=== PATIENT | female | born 1940 | race Caucasian/White ===

== ENCOUNTER 2017-03-07 15:12 | Inpatient (IN) ==
--- NOTE | 2017-03-07 18:00 | Internal Med History&Physical ---
Date of Encounter: 03/07/17 Time of Encounter: 19:53 Assessment and Plan (1) S/p nephrectomy Current visit: Yes Status: Acute Had a left laparoscopic hand assisted nephrectomy on 02/20 2017 for a left renal mass. She had a splenic injury that resulted in a bleed at the time of surgery that was packed. and had hemostasis. she had several repeat CT scans that showed stability of the splenic hematoma. She did undergo transfusion of 4 units packed red blood cells done at [facility]. Surgery was consult to for this splenic hematoma conservative management was done. She is deconditioned after all thatand is here for rehabilitation. (2) Physical deconditioning Current visit: Yes Status: Acute She is deconditioned after her left nephrectomy we will consult PT OT RT. Discharge will be pending rehabilitation goals when she is safe in her home (3) Acquired hypothyroidism Current visit: Yes Status: Acute We will continue her home medication (4) CKD (chronic kidney disease), stage III Current visit: Yes Status: Chronic Follow her creatinine. (5) HTN (hypertension) Current visit: Yes Status: Chronic Blood pressures have been on the low side since she was [facility] we will continue to follow that she is on a beta juan carlos she is on a Cardizem she is on losartan and Lasix. may Have to adjust medications if blood pressures are low. Qualifiers: Hypertension type: essential hypertension Qualified Code(s): I10 - Essential (primary) hypertension (6) DVT prophylaxis Current visit: Yes Status: Inactive She was on xarelto prior to admission for chronic A. fib. That was held after the splenic hematoma we will keep her on the SCDs for DVT prophylaxis (7) Renal mass Current visit: No Status: Acute She underwent a laparoscopic left hand-assisted nephrectomy on 02/20 2017 (8) Spleen hematoma Current visit: Yes Status: Acute She had 4 units of packed red blood cells after this conservative management has been done she had [address] scans a documented stability of this. Anticoagulation is being held due to this. Qualifiers: Encounter type: subsequent encounter Qualified Code(s): S36.029D - Unspecified contusion of spleen, subsequent encounter (9) Acute congestive heart failure with left ventricular diastolic dysfunction Current visit: Yes Status: Acute He received 4 units of packed red blood cells done at [facility] for her anemia after her splenic hematoma postop. She did receive a lot IV fluids she had IV Lasix and diuresis. She had pleural effusions she has since been doing better she is on oral Lasix she is on losartan she is on a beta juan carlos. We will continue to monitor for swelling and sign of CHF. (10) Afib Current visit: Yes Status: Chronic Is on metoprolol and added diltiazem down at [facility]. She is not currently anticoagulated other than an aspirin due to the fact she had a splenic hematoma. She has a history of retroperitoneal bleed and on Coumadin in the past. We will hold this for now stroke risks discussed Qualifiers: Atrial fibrillation type: chronic Qualified Code(s): I48.2 - Chronic atrial fibrillation (11) Acute blood loss anemia Current visit: Yes Status: Acute (12) Hyponatremia Current visit: No Status: Chronic Is likely due to fluid overload and CHF her sodium has gotten closer to normal with diuresis we will continue to follow (13) Sacral decubitus ulcer, stage II Current visit: Yes Status: Acute will consult care on friday. position changes Internal Medicine - H&P: HPI Chief complaint: here for Rehabilitation Admitted From: Hospital to Hospital Transfer Plans for Post Hospital Care: Home History of present illness: Ms. Jeffries is a 76 year old female Who had a left hand-assisted nephrectomy on 2016 for renal mass. She had a splenic injury at the time that developed a splenic hematoma. She had a postop anemia that required a transfusion of 4 units of packed red blood cells. She had CHF due to fluid overload with all the IV fluid she received for resuscitation after the hematoma. She has been diuresed with IV Lasix. She had A. fib with a rapid ventricular response to which diltiazem was added to her beta juan carlos. She is not anticoagulated due to the splenic hematoma. She also had a history of a retroperitoneal bleed in the past when she was on Coumadin. Due to the risk of bleeding we will hold her anticoagulation. She has become deconditioned and she is here for rehabilitation PT OT RT. The squad ride here was not comfortable. her neck and incision are bothering her. she had a "suprise"stool with a suppository at [facility] and is requesting no more of that since she did not make it in time. She was getting duonebs at [facility] and her son requests those again in case she wheezes. her appetite has been low, but she states she does this after she has surgery. her energy is low too. Past Med Surg Social Fam HX - Past Medical History Medical history: arthritis, atrial fibrillation, cancer (breast, basal cell of skin), hyperlipidemia, hypertension, malignancy, renal disease (CKD and a left renal mass, s/p nephrectomy on 02/20/17), thyroid disease (hypo), other ( secondary hyperparathyroid, anemia, vitamin d def, obesity) Psychiatric history: no psych history - Past Surgical History Surgical History: breast surgery (2008 masectomy), cancer surgery, cataract ( 2002, 2010), hip replacement (left 06/24/16), orthopedic, other (1988 rotator cuff repair, 1979 carpal tunnel release x3, , trigger finger bilateral 4th digits and left thumb), sinus surgery (2005), other (1983 BPS, tonsils child, skin bx 2012, cardiac ablation 2013, 2009 colonoscopy, d&C 09/2015, 02/20/2017 left hand assisted laparoscopic nephrectomy for renal mass) - Social History Smoking Status: Never smoker Smokeless Tobacco Status: No Alcohol use: none Drug use: none Current living situation: Home - Independent - Family History Mother Living Status: Age at : 71 Cause of : aneurysm Hx Family Cardiac Disorders: Yes (htn, chf ) Hx Family Neurologic Disorders: Yes (aneurysm) Father Living Status: Hx Family Cardiac Disorders: Yes (cad,mi) Hx Family Cancer: Yes (lymphoma) Son Cause of : Asif age 14 MVA Internal Medicine - H&P: Meds Atorvastatin [Lipitor] 40 mg PO HS tablet 06/12/15 [Rx] Losartan [Cozaar] 100 mg PO DAILY #30 tablet 06/12/15 [Rx] Aspirin Enteric Coated [Aspirin EC] 81 mg PO DAILY 07/18/15 [History] Furosemide [Lasix] 40 mg PO HS 09/05/15 [History] Potassium Chloride [Klor-Con Sprinkle] 10 meq PO BID 09/05/15 [History] Calcium Citrate/Vitamin D3 [Calcium Citrate-Vit D3 Tablet] 1 each PO DAILY 03/10 [History] Cholecalciferol (Vitamin D3) [Vitamin D3] 2,000 unit PO DAILY 03/10/16 [History] Clindamycin HCl [Cleocin HCl] 300 mg PO DAILY 03/10/16 [History] Glucosamine Sulfate Dipot Chlr [Glucosamine] 500 mg PO DAILY 03/10/16 [History] Vit C/Vit E/Lutein/Min/[place]-3 [Ocuvite Softgel] 1 cap PO DAILY 03/10/16 [ History] Ferrous Sulfate 325 mg PO BIDWM #60 tablet 07/04/16 [Rx] Rivaroxaban [Xarelto] 15 mg PO 1700 #30 tablet 07/05/16 [Rx] Metoprolol [Lopressor] 25 mg PO BID 02/28/17 [History] Vit C/Vit E/Lutein/Min/[place]-3 [Ocuvite Softgel] 1 each PO DAILY 02/28/17 [ History] Diltiazem CD (24hr) [Cardizem CD] 120 mg PO DAILY #30 cap.er.24h 03/07/17 [Rx] OxyCODONE Immed Rel [Roxicodone 5 MG] 10 mg PO Q6HR PRN #25 tablet 03/07/17 [Rx] Sennosides/Docusate Sodium [Senna Plus] 2 each PO BID #30 tablet 03/07/17 [Rx] Allergies No Known Allergies Allergy (Verified 02/28/17 08:34) All Systems PM: A 10-system review of systems was performed and is negative for pertinent findings except as documented above in the HPI. - Constitutional Constitutional: anorexia (decreased appetite), fatigue, weakness (generalized), no chills, no fever(s), no night sweats - Respiratory Respiratory: wheezing (did have some at [facility] and had duonebs for this), no cough, no dyspnea - Gastrointestinal Gastrointestinal: abdominal pain (incision pain), constipation (had a suppository), heartburn (did have post op none now), no diarrhea, no hematochezia, no loose stools, no melena, no nausea, no vomiting (since after surgery) - Genitourinary Genitourinary: no dysuria, no hematuria, no urinary urgency - Musculoskeletal Musculoskeletal ROS IM: neck pain (since the squad ride) - Integumentary Integumentary IM: skin ulcer (buttocks), no pruritus, no rash - Neurological Neurological ROS: weakness (generalized not focal), no numbness, no paresthesias - Endocrine Endocrine IM: fatigue - Constitutional Vitals: Temp Pulse Resp BP Pulse Ox 99.4 F 98 18 124/92 92 03/07/17 15:21 03/07/17 15:21 03/07/17 15:21 03/07/17 15:21 03/07/17 15:21 General appearance: Present: A&O X 3, no acute distress, obese, answers questions appropriately - Head Head exam: Present: atraumatic, normocephalic - Neck Neck exam general surgery: Present: full ROM (hurts to turn to the left), tenderness (paraspinals soreness), supple, trachea midline - Respiratory Respiratory exam: Present: CTAB - Cardiovascular Cardiovascular exam: Present: irregular rhythm, systolic murmur - GI/Abdominal GI/Abdominal exam: Present: distended, normal bowel sounds, tenderness (over incisions). Absent: guarding, rebound, no peritoneal signs - Extremities Exam Extremities exam: Present: normal capillary refill, warm. Absent: cyanotic, pedal edema, tenderness - Incison Incision: Present: clean and dry, intact (of left upper abd and port incisions) - Skin Skin exam: Present: abrasion (stage 2 sacral x 2left and right), dry, warm. Absent: rash
[2017-03-07] MEDS ORDERED: D5% in Water 1,000 ML IVC PRN (20:05)
[2017-03-07] MEDS ORDERED: Dextrose Gel 15 GM PO PRN ×2 (20:05)
[2017-03-07] MEDS ORDERED: *HR* Dextrose 50 % in Water (Syg) 50 ML SYRINGE IVP PRN (20:05)
[2017-03-07] MEDS ORDERED: Ipratropium/Albuterol Neb 3 ML IH PRN (20:06)
[2017-03-07] MEDS: Sennosides/Docusate Sodium TABLET PO SCH (23:04)
[2017-03-08] MEDS: Insulin LISPRO 300 UNITS/3 ML VIAL SQ SCH ×5 (00:07→22:33)
[2017-03-08 02:51] LABS: Bilirubin,Urine Negative (Negative); Blood,Urine Trace-lysed (Negative); Clarity,Urine Clear (Clear); Color,Urine Yellow (Yellow); Glucose,Urine (UA) Normal (Normal); Ketones,Urine Negative (Negative); Leukocyte Esterase,Urine Small (Negative); Nitrite,Urine Negative (Negative); PH,Urine 5.5 pH Units (5.0-8.0); Protein,Urine 100 mg/dL (Neg-Trace); Specific Gravity,Urine 1.015 (1.010-1.025); Urobilinogen,Urine Normal (Normal)
[2017-03-08 04:21] LABS: Bacteria,Urine Moderate per hpf (None-Few); Squamous Epithelial Cell,Urine Few per lpf (None-Few)
[2017-03-08 05:05] LABS: Basophils % 0.2 %; Eosinophils # 0.2 K/mcL (0.0-0.6); Eosinophils % 1.4 %; Hematocrit 25.9 % (35.3-44.9); Hemoglobin 8.4 g/dL (11.5-15.4); Immature Granulocytes % 1.7 % (0-4); Lymphocytes # 1.4 K/mcL (0.6-4.6); Lymphocytes % 11.3 %; Mean Corpuscular HGB Conc 32.4 g/dL (31.6-35.5); Mean Corpuscular Volume 95.6 fL (83.0-100.0); Mean Platelet Volume 8.6 fL (9.4-12.4); Monocytes # 1.5 K/mcL (0.0-1.3); Monocytes % 12.3 %; Neutrophils # 9.1 K/mcL (1.6-8.9); Platelet Count 256 K/mcL (140-400); Red Blood Count 2.71 M/mcL (3.82-4.97); Red Cell Distribution Width 15.9 % (11.5-14.5); Segmented Neutrophils % 73.1 %
[2017-03-08 05:19] LABS: Calcium 8.3 mg/dL (8.6-10.8); Potassium 3.9 mEq/L (3.5-4.5)
[2017-03-08] MEDS: Diltiazem CD (24hr) 120 MG CAPSULE PO SCH (08:36)
[2017-03-08] MEDS: *HR* OxyCODONE Immed Rel 5 MG TABLET PO PRN ×2 (08:36→16:46)
[2017-03-08] MEDS: Cholecalciferol (D-3) 1,000 UNIT TABLET PO SCH (08:36)
[2017-03-08] MEDS: Sennosides/Docusate Sodium TABLET PO SCH ×2 (08:36→20:40)
[2017-03-08] MEDS: LUTEIN PO SCH (08:37)
[2017-03-08] MEDS: GLUCOSAMINE SULFATE DIPOT CHLR 500 MG PO SCH (08:37)
[2017-03-08] MEDS: Furosemide 40 MG TABLET PO SCH (08:37)
[2017-03-08] MEDS: Aspirin Enteric Coated 81 MG Tablet PO SCH (08:37)
[2017-03-08] MEDS: [UNRECOGNIZED DRUG - OTHER] PO SCH (08:37)
[2017-03-08] MEDS: VIT C PO SCH (08:37)
[2017-03-08] MEDS: VIT E PO SCH (08:37)
[2017-03-09] MEDS: *HR* OxyCODONE Immed Rel 5 MG TABLET PO PRN ×3 (05:58→21:46)
[2017-03-09] MEDS: Insulin LISPRO 300 UNITS/3 ML VIAL SQ SCH ×4 (08:25→21:12)
[2017-03-09] MEDS: Cholecalciferol (D-3) 1,000 UNIT TABLET PO SCH (08:57)
[2017-03-09] MEDS: Aspirin Enteric Coated 81 MG Tablet PO SCH (08:57)
[2017-03-09] MEDS: Diltiazem CD (24hr) 120 MG CAPSULE PO SCH (08:57)
[2017-03-09] MEDS: Sennosides/Docusate Sodium TABLET PO SCH ×2 (08:57→21:46)
[2017-03-09] MEDS: VIT C PO SCH (08:58)
[2017-03-09] MEDS: VIT E PO SCH (08:58)
[2017-03-09] MEDS: [UNRECOGNIZED DRUG - OTHER] PO SCH (08:58)
[2017-03-09] MEDS: GLUCOSAMINE SULFATE DIPOT CHLR 500 MG PO SCH (08:58)
[2017-03-09] MEDS: Furosemide 40 MG TABLET PO SCH (08:58)
[2017-03-09] MEDS: LUTEIN PO SCH (08:58)
--- NOTE | 2017-03-09 13:25 | Internal Med Progress Note ---
Date of Encounter: 03/09/17 Time of Encounter: 13:23 - Assessment and plan (1) S/p nephrectomy Current Visit: Yes Status: Acute Assessment and plan: she has deconditioning she is here for rehabilitation will continue PT RT OT. (2) Physical deconditioning Current Visit: Yes Status: Acute Assessment and plan: She is here for PT RT O T (3) Acquired hypothyroidism Current Visit: Yes Status: Acute Assessment and plan: will continue home medication. she was off it at [facility] (4) CKD (chronic kidney disease), stage III Current Visit: Yes Status: Chronic Assessment and plan: has improved will continue to follow, bmp on friday (5) HTN (hypertension) Current Visit: Yes Status: Chronic Assessment and plan: Has been up and down. We will continue to follow may need to adjust her medicines but metoprolol and diltiazem for her heart rate if she goes low may have to hold her losartan. Qualifiers: Hypertension type: essential hypertension Qualified Code(s): I10 - Essential (primary) hypertension (6) DVT prophylaxis Current Visit: Yes Status: Inactive Assessment and plan: cannot do anticoagulation due to the spleenic hematoma. SCD and ROWAN hose and ambulation. (7) Renal mass Current Visit: No Status: Acute Assessment and plan: s/p left nephrectomy. path pending. she was told it was cancer (8) Spleen hematoma Current Visit: Yes Status: Acute Qualifiers: Encounter type: subsequent encounter Qualified Code(s): S36.029D - Unspecified contusion of spleen, subsequent encounter (9) Acute congestive heart failure with left ventricular diastolic dysfunction Current Visit: Yes Status: Acute Assessment and plan: She is on Lasix losartan metoprolol (10) Afib Current Visit: Yes Status: Chronic Assessment and plan: She is not anticoagulated with except a baby aspirin due to the splenic hematoma she also had retroperitoneal bleed in the past on Coumadin. holding anticoagulation for now. discussed this with patient to discuss her increased risk for thromboembolic event due to not being anticoagulated with atrial fibrillation. Her son and her are the risk. Qualifiers: Atrial fibrillation type: chronic Qualified Code(s): I48.2 - Chronic atrial fibrillation (11) Acute blood loss anemia Current Visit: Yes Status: Acute Assessment and plan: Has been stable she is status post 4 units packed red blood cells done at [facility]. We will repeat a hemoglobin tomorrow due to postoperative blood loss and a splenic hematoma (12) Hyponatremia Current Visit: No Status: Chronic Assessment and plan: Has resolved with correcting her fluid balance. (13) Sacral decubitus ulcer, stage II Current Visit: Yes Status: Acute Assessment and plan: Tristan will have wound care see her on Friday. Continue frequent position changes - Subjective Interval history: Her pain is acceptable. She has not had a had a stool. She is passing gas. She has no nausea or vomiting. She is not short of breath she is not wheezing. She does not feel her heart palpitating or racing. She is not dizzy. She has shower yesterday she was up to rehabilitation yesterday. She is wearing her SCDs when she is in bed. - Constitutional Vitals: Temp Pulse Resp BP Pulse Ox 97.0 F L 120 20 128/81 96 03/09/17 11:34 03/09/17 11:34 03/09/17 11:34 03/09/17 11:34 03/09/17 11:34 General appearance: Present: A&O X 3, no acute distress, obese, answers questions appropriately - Head Head exam: Present: atraumatic, normocephalic - Neck Neck exam general surgery: Present: trachea midline. Absent: full ROM (She is having some cervical muscle spasms.), tenderness - Respiratory Respiratory exam: Present: CTAB - Cardiovascular Cardiovascular exam: Present: irregular rhythm, systolic murmur - GI/Abdominal GI/Abdominal exam: Present: distended (But she states no different than her normal), normal bowel sounds, no peritoneal signs. Absent: guarding, rebound, tenderness - Extremities Exam Extremities exam: Present: warm. Absent: pedal edema (ROWAN hose on bilaterally) - Incison Incision: Present: clean and dry, intact (Mild induration with a hematoma at the left lateral incision no change) - Skin Skin exam: Present: dry, warm. Absent: rash Internal Medicine: Result - Labs CBC & Chem 7: 03/08/17 04:45 03/08/17 04:45 - VTE Documentation of Mechanical Device: Venous foot pump, device Consult Discharge Plan - Plan Referrals: Denny Bergeron MD [Primary Care Provider] -
[2017-03-09] MEDS: Lactulose Oral Soln 20 GM/30 ML UDC PO PRN (15:19)
[2017-03-10] MEDS: *HR* OxyCODONE Immed Rel 5 MG TABLET PO PRN ×2 (06:05→19:52)
[2017-03-10 06:09] LABS: Basophils % 0.3 %; Eosinophils # 0.2 K/mcL (0.0-0.6); Eosinophils % 1.9 %; Hematocrit 26.3 % (35.3-44.9); Hemoglobin 8.2 g/dL (11.5-15.4); Immature Granulocytes % 1.8 % (0-4); Lymphocytes # 1.5 K/mcL (0.6-4.6); Lymphocytes % 11.8 %; Mean Corpuscular HGB Conc 31.2 g/dL (31.6-35.5); Mean Corpuscular Hemoglobin 30.6 pg (28.0-33.3); Mean Corpuscular Volume 98.1 fL (83.0-100.0); Mean Platelet Volume 8.6 fL (9.4-12.4); Monocytes # 1.5 K/mcL (0.0-1.3); Monocytes % 11.6 %; Neutrophils # 9.1 K/mcL (1.6-8.9); Platelet Count 291 K/mcL (140-400); Red Blood Count 2.68 M/mcL (3.82-4.97); Red Cell Distribution Width 15.7 % (11.5-14.5); Segmented Neutrophils % 72.6 %
[2017-03-10 06:14] LABS: Calcium 8.5 mg/dL (8.6-10.8); Potassium 4.2 mEq/L (3.5-4.5)
--- NOTE | 2017-03-10 06:44 | Internal Med Progress Note ---
Date of Encounter: 03/10/17 Time of Encounter: 06:44 - Assessment and plan (1) Physical deconditioning Current Visit: Yes Status: Acute Assessment and plan: Patient will be resuming full therapies today, Friday. She has been able to get out of bed with help, ambulate with her walker to and from the dining room. Her pain is under good control. She feels like she is improving. Her biggest complaint is neck stiffness which seems be musculoskeletal. No meningeal signs. Hopefully therapies can work with this as well. (2) CKD (chronic kidney disease), stage III Current Visit: Yes Status: Acute Assessment and plan: Her creatinine is up to 1.99. I encouraged her to increase her fluid intake. She has a history of chronic kidney disease and will monitor for now. (3) HTN (hypertension) Current Visit: Yes Status: Chronic Assessment and plan: Chronic history of hypertension, now her blood pressures are in the 90s systolic. We will hold her Cozaar today. We will continue her beta juan carlos and calcium channel juan carlos for rate control. She is not symptomatic. Qualifiers: Hypertension type: essential hypertension Qualified Code(s): I10 - Essential (primary) hypertension (4) Hypoxemia Current Visit: No Status: Acute Assessment and plan: She is still requiring a small amount of oxygen. Typically at home she uses it at night. We will continue to monitor and wean when appropriate. (5) Constipation Current Visit: No Status: Inactive Assessment and plan: She states her bowels have not moved since she has been in Rehab. She did have incontinence with suppository used at [facility]. Lactulose was started and she is passing gas. We will see what happens today. No particular symptomatically otherwise. Bowel sounds are normal. Qualifiers: Constipation type: unspecified constipation type Qualified Code(s): K59.00 - Constipation, unspecified (6) Afib Current Visit: Yes Status: Chronic Assessment and plan: Chronic history of atrial fibrillation, A. fib with RVR postop now controlled. No angina or CHF noted. Not anticoagulated because of previous retroperitoneal bleed. Recent splenic hematoma and bleed postop. Qualifiers: Atrial fibrillation type: chronic Qualified Code(s): I48.2 - Chronic atrial fibrillation (7) Spleen hematoma Current Visit: No Status: Acute Assessment and plan: Hemoglobin is stable at 8.2. Her abdomen is nontender. Qualifiers: Encounter type: subsequent encounter Qualified Code(s): S36.029D - Unspecified contusion of spleen, subsequent encounter (8) Acute blood loss anemia Current Visit: Yes Status: Acute Assessment and plan: Hemoglobin is 8.2 and stable. We will continue to monitor. (9) Sacral decubitus ulcer, stage II Current Visit: Yes Status: Acute Assessment and plan: I did not evaluate this today. She is being seen by wound clinic today. Allevyn has been placed (10) S/p nephrectomy Current Visit: Yes Status: Acute (11) DVT prophylaxis Current Visit: Yes Status: Inactive Assessment and plan: She is not a candidate for full anticoagulation because of previous retroperitoneal bleed and recent splenic hematoma postop bleed. Compression devices on lower extremities and ambulation and elastic stockings being used. No sign of DVT. No calf tenderness. - Subjective Interval history: Patient states that she slept well last night. She has been up and out of bed already this morning into the bathroom. She denies any respiratory or cardiac symptoms. She is having less pain of her incision and less pain when she coughs or sits up. She does complain of pain across to her feet. No calf pain or tenderness. No dyspnea. She also has "a stiff neck". She states she gets this on occasion in the past. It hurts when she turns to the left or right, more pain on the right neck area when turning to the left side. No fever or chills. - Constitutional Vitals: Temp Pulse Resp BP Pulse Ox 98.3 F 99 16 90/61 97 03/10/17 04:00 03/10/17 04:00 03/10/17 04:00 03/10/17 04:00 03/10/17 04:00 General appearance: Present: A&O X 3, no acute distress, obese, answers questions appropriately - Neck Additional comments: She is appropriate flexion and extension for her age. When looking to the left or right she has pain in the ipsilateral side of her neck. She favors the right side. - Respiratory Respiratory exam: Present: CTAB. Absent: rales, respiratory distress, wheezes - Cardiovascular Cardiovascular exam: Present: irregular rhythm. Absent: systolic murmur Additional comments: Controlled rate in the 70s to 90s. - GI/Abdominal GI/Abdominal exam: Present: normal bowel sounds. Absent: rebound, tenderness, no peritoneal signs Additional comments: Her 3 incisions are healing nicely. No redness or drainage. Not particularly tender. - Extremities Exam Extremities exam: Absent: calf tenderness, joint swelling Additional comments: She is tender at her ankles and across the dorsum of her feet. No particular edema. Negative Homans sign - Incison Incision: Present: clean and dry, intact, approximated Internal Medicine: Result - Labs CBC & Chem 7: 03/10/17 05:35 03/10/17 05:35 Labs: Short CBC 03/10/17 Range/Units 05:35 WBC 12.5 H (4.3-11.1) K/mcL Hgb 8.2 L (11.5-15.4) g/dL Hct 26.3 L (35.3-44.9) % Plt Count 291 (140-400) K/mcL Neutrophils # 9.1 H (1.6-8.9) K/mcL BMP 03/10/17 05:35 Sodium 138 Potassium 4.2 Chloride 102 Carbon Dioxide 24 BUN 47 H D Creatinine 1.99 H Glucose 121 H Calcium 8.5 L Hemoglobin is stable. White blood cell count mildly elevated and stable. Her creatinine has risen a bit, she has a history of chronic kidney disease. - VTE Documentation of Mechanical Device: Venous foot pump, device Consult Discharge Plan - Plan Referrals: Denny Bergeron MD [Primary Care Provider] -
[2017-03-10] MEDS: Aspirin Enteric Coated 81 MG Tablet PO SCH (08:35)
[2017-03-10] MEDS: Diltiazem CD (24hr) 120 MG CAPSULE PO SCH (08:36)
[2017-03-10] MEDS: GLUCOSAMINE SULFATE DIPOT CHLR 500 MG PO SCH (08:36)
[2017-03-10] MEDS: Sennosides/Docusate Sodium TABLET PO SCH ×2 (08:36→19:52)
[2017-03-10] MEDS: Cholecalciferol (D-3) 1,000 UNIT TABLET PO SCH (08:36)
[2017-03-10] MEDS: Furosemide 40 MG TABLET PO SCH (08:36)
[2017-03-10] MEDS: Insulin LISPRO 300 UNITS/3 ML VIAL SQ SCH ×4 (08:37→21:14)
[2017-03-10] MEDS: VIT C PO SCH (08:38)
[2017-03-10] MEDS: [UNRECOGNIZED DRUG - OTHER] PO SCH (08:38)
[2017-03-10] MEDS: LUTEIN PO SCH (08:38)
[2017-03-10] MEDS: VIT E PO SCH (08:38)
[2017-03-11] MEDS: *HR* OxyCODONE Immed Rel 5 MG TABLET PO PRN ×2 (03:41→20:35)
--- NOTE | 2017-03-11 06:33 | Internal Med Progress Note ---
Date of Encounter: 03/12/17 Time of Encounter: 06:25 - Assessment and plan (1) Physical deconditioning Current Visit: Yes Status: Acute Assessment and plan: She continues to advance with her therapies and ADLs. Pain is under adequate control. She is able to go off her oxygen at times. (2) CKD (chronic kidney disease), stage III Current Visit: Yes Status: Acute Assessment and plan: She has chronic kidney disease with acute exacerbation. Overall has been stable or improved. Follow-up lab work ordered. (3) HTN (hypertension) Current Visit: Yes Status: Chronic Assessment and plan: Hypertension has been under better control. She had hypotension, Cozaar was held and pressures are now reasonable. We will continue to monitor. Qualifiers: Hypertension type: essential hypertension Qualified Code(s): I10 - Essential (primary) hypertension (4) Hypoxemia Current Visit: No Status: Acute Assessment and plan: She is able to spend more time during the day off oxygen. She chronically uses it at night. (5) Constipation Current Visit: No Status: Inactive Assessment and plan: She still has not had a good bowel movement since admitted to our facility. We will increase to lactulose to twice a day if needed. Continue to follow. Her abdomen examination is otherwise normal Qualifiers: Constipation type: unspecified constipation type Qualified Code(s): K59.00 - Constipation, unspecified (6) Afib Current Visit: Yes Status: Chronic Assessment and plan: She has a history of chronic atrial fibrillation but not a candidate for anticoagulation because of retroperitoneal hemorrhage in the past. She is rate controlled Qualifiers: Atrial fibrillation type: chronic Qualified Code(s): I48.2 - Chronic atrial fibrillation (7) Spleen hematoma Current Visit: No Status: Acute Assessment and plan: She has had no abdominal pain. Her hemoglobin has been stable. Follow-up ordered. Qualifiers: Encounter type: subsequent encounter Qualified Code(s): S36.029D - Unspecified contusion of spleen, subsequent encounter (8) Acute blood loss anemia Current Visit: Yes Status: Acute Assessment and plan: Follow-up hemoglobin ordered. (9) Sacral decubitus ulcer, stage II Current Visit: Yes Status: Acute Assessment and plan: Has been seen by wound clinic. Allevyn has been placed. We will evaluate tomorrow. (10) S/p nephrectomy Current Visit: Yes Status: Acute (11) DVT prophylaxis Current Visit: Yes Status: Inactive Assessment and plan: Not able to have full anticoagulation because of previous retroperitoneal hemorrhage. She is getting aspirin and compression devices to lower extremities and frequent ambulation. - Subjective Interval history: Patient has no acute symptoms this morning. She walked well in therapy yesterday. She was able to be on room air during the day. Chronically she uses oxygen at night. She denies any cardiac or respiratory symptoms. Her bowels have not moved, she has passed gas. No abdominal pain. Her neck pain is improved. Her ankle and foot pain is improved. She is eating well. She is needing fairly minimal amount of pain medication. I was told that expected discharge date is . - Constitutional Vitals: Temp Pulse Resp BP Pulse Ox 98.5 F 93 16 117/58 97 03/11/17 03:37 03/11/17 03:37 03/11/17 03:37 03/11/17 03:37 03/11/17 03:37 General appearance: Present: A&O X 3, no acute distress, obese, answers questions appropriately - Respiratory Respiratory exam: Present: CTAB - Cardiovascular Cardiovascular exam: Present: irregular rhythm, +S1, +S2. Absent: systolic murmur - GI/Abdominal GI/Abdominal exam: Present: normal bowel sounds, soft, no peritoneal signs. Absent: mass, tenderness - Extremities Exam Extremities exam: Absent: calf tenderness, tenderness - Incison Incision: Present: clean and dry, intact. Absent: erythema Internal Medicine: Result - Labs CBC & Chem 7: 03/12/17 04:50 03/12/17 04:50 - VTE Documentation of Mechanical Device: Graduated compression elastic hosiery Consult Discharge Plan - Plan Referrals: Denny Bergeron MD [Primary Care Provider] -
[2017-03-11] MEDS: Insulin LISPRO 300 UNITS/3 ML VIAL SQ SCH ×4 (07:34→20:40)
[2017-03-11] MEDS: GLUCOSAMINE SULFATE DIPOT CHLR 500 MG PO SCH (08:29)
[2017-03-11] MEDS: Diltiazem CD (24hr) 120 MG CAPSULE PO SCH (08:29)
[2017-03-11] MEDS: Furosemide 40 MG TABLET PO SCH (08:29)
[2017-03-11] MEDS: Sennosides/Docusate Sodium TABLET PO SCH ×2 (08:29→20:34)
[2017-03-11] MEDS: Cholecalciferol (D-3) 1,000 UNIT TABLET PO SCH (08:29)
[2017-03-11] MEDS: Aspirin Enteric Coated 81 MG Tablet PO SCH (08:29)
[2017-03-11] MEDS: VIT E PO SCH (08:30)
[2017-03-11] MEDS: LUTEIN PO SCH (08:30)
[2017-03-11] MEDS: [UNRECOGNIZED DRUG - OTHER] PO SCH (08:30)
[2017-03-11] MEDS: VIT C PO SCH (08:30)
[2017-03-11] MEDS: Lactulose Oral Soln 20 GM/30 ML UDC PO PRN ×3 (08:30→20:34)
[2017-03-12 05:06] LABS: Basophils % 0.3 %; Eosinophils # 0.2 K/mcL (0.0-0.6); Eosinophils % 1.9 %; Hematocrit 27.3 % (35.3-44.9); Hemoglobin 8.6 g/dL (11.5-15.4); Immature Granulocytes % 1.8 % (0-4); Lymphocytes # 1.4 K/mcL (0.6-4.6); Lymphocytes % 11.5 %; Mean Corpuscular HGB Conc 31.5 g/dL (31.6-35.5); Mean Corpuscular Hemoglobin 30.9 pg (28.0-33.3); Mean Corpuscular Volume 98.2 fL (83.0-100.0); Mean Platelet Volume 8.6 fL (9.4-12.4); Monocytes # 1.2 K/mcL (0.0-1.3); Monocytes % 9.8 %; Neutrophils # 9.2 K/mcL (1.6-8.9); Platelet Count 324 K/mcL (140-400); Red Blood Count 2.78 M/mcL (3.82-4.97); Red Cell Distribution Width 15.3 % (11.5-14.5); Segmented Neutrophils % 74.7 %
[2017-03-12 05:10] LABS: Calcium 8.5 mg/dL (8.6-10.8); Potassium 4.1 mEq/L (3.5-4.5)
[2017-03-12] MEDS: *HR* OxyCODONE Immed Rel 5 MG TABLET PO PRN ×2 (05:54→20:50)
[2017-03-12] MEDS: Insulin LISPRO 300 UNITS/3 ML VIAL SQ SCH ×4 (08:53→20:52)
[2017-03-12] MEDS: Lactulose Oral Soln 20 GM/30 ML UDC PO PRN ×2 (09:02→20:49)
[2017-03-12] MEDS: Aspirin Enteric Coated 81 MG Tablet PO SCH (09:03)
[2017-03-12] MEDS: Diltiazem CD (24hr) 120 MG CAPSULE PO SCH (09:03)
[2017-03-12] MEDS: Cholecalciferol (D-3) 1,000 UNIT TABLET PO SCH (09:03)
[2017-03-12] MEDS: Sennosides/Docusate Sodium TABLET PO SCH ×2 (09:03→20:49)
[2017-03-12] MEDS: Furosemide 40 MG TABLET PO SCH (09:03)
[2017-03-12] MEDS: LUTEIN PO SCH (09:06)
[2017-03-12] MEDS: VIT C PO SCH (09:06)
[2017-03-12] MEDS: [UNRECOGNIZED DRUG - OTHER] PO SCH (09:06)
[2017-03-12] MEDS: GLUCOSAMINE SULFATE DIPOT CHLR 500 MG PO SCH (09:06)
[2017-03-12] MEDS: VIT E PO SCH (09:06)
--- NOTE | 2017-03-12 09:20 | Internal Med Progress Note ---
Date of Encounter: 03/12/17 Time of Encounter: 09:19 - Assessment and plan (1) Physical deconditioning Current Visit: Yes Status: Acute Assessment and plan: She continues to improve with her ADLs and endurance. She is progressing with her ambulation. Her pain is under reasonable control. Discharge planning is for tomorrow to home. (2) CKD (chronic kidney disease), stage III Current Visit: Yes Status: Acute Assessment and plan: Chronic kidney disease with acute kidney injury now improved and stabilized. We will follow for now. (3) HTN (hypertension) Current Visit: Yes Status: Chronic Assessment and plan: She chronically has hypertension, she developed hypotension during this stay and her Cardizem was held. Now her blood pressure elevated again to 180 systolic range. Her Cozaar/losartan will be restarted Qualifiers: Hypertension type: essential hypertension Qualified Code(s): I10 - Essential (primary) hypertension (4) Hypoxemia Current Visit: No Status: Acute Assessment and plan: She chronically uses oxygen at nighttime. She is using oxygen during the day if she becomes hypoxic or dyspneic. She is tolerating room air intermittently as well. (5) Constipation Current Visit: No Status: Inactive Assessment and plan: Her bowels are still not moved. We will continue to watch. She has good bowel sounds. Lactulose was increased. Abdomen is nontender. Qualifiers: Constipation type: unspecified constipation type Qualified Code(s): K59.00 - Constipation, unspecified (6) Afib Current Visit: Yes Status: Chronic Assessment and plan: History of paroxysmal atrial fibrillation, since her surgery she has had atrial fibrillation. Her RVR resolved. She is rate controlled. She is not a good candidate for full anticoagulation because of previous retroperitoneal hemorrhage and now recent splenic hematoma and bleed postoperatively. She understands the risk of CVA. Qualifiers: Atrial fibrillation type: chronic Qualified Code(s): I48.2 - Chronic atrial fibrillation (7) Spleen hematoma Current Visit: No Status: Acute Assessment and plan: Hemoglobin has improved. No abdominal pain. Qualifiers: Encounter type: subsequent encounter Qualified Code(s): S36.029D - Unspecified contusion of spleen, subsequent encounter (8) Acute blood loss anemia Current Visit: Yes Status: Acute Assessment and plan: Hemoglobin improved. (9) Sacral decubitus ulcer, stage II Current Visit: Yes Status: Acute Assessment and plan: Small stage II decubitus evaluated and is healing nicely. (10) S/p nephrectomy Current Visit: Yes Status: Acute (11) DVT prophylaxis Current Visit: Yes Status: Inactive - Subjective Interval history: Patient denies any cardiac or respiratory symptoms unless she is walking too fast. She thinks her breathing is getting better. She is able to tolerate some time without the oxygen supplement. She denies any abdominal pain. No nausea or vomiting. She has not had a bowel movement yet since in our facility. Despite elevated blood pressure today she denies any headache or blurred vision or NEEDLE LEADER changes. Her pain is under good control, requiring medicine only about twice a day. - Constitutional Vitals: Temp Pulse Resp BP Pulse Ox 97.8 F 90 18 181/108 99 03/12/17 07:26 03/12/17 07:26 03/12/17 07:26 03/12/17 07:26 03/12/17 07:26 General appearance: Present: A&O X 3, no acute distress, obese, answers questions appropriately - Respiratory Respiratory exam: Present: CTAB - Cardiovascular Cardiovascular exam: Present: irregular rhythm, +S1, +S2. Absent: systolic murmur, tachycardia - GI/Abdominal GI/Abdominal exam: Present: normal bowel sounds. Absent: tenderness - Extremities Exam Additional comments: Some edema and wrinkles in her elastic stockings. No calf tenderness. - Incison Incision: Present: clean and dry, intact. Absent: erythema - Skin Additional comments: Very thin second-degree open blister type decubitus right medial buttock area is healing nicely, drying out nicely. No secondary infection. Measures about a centimeter. Allevyn dressing intact Internal Medicine: Result - Labs CBC & Chem 7: 03/12/17 04:50 03/12/17 04:50 Labs: Short CBC 03/12/17 Range/Units 04:50 WBC 12.3 H (4.3-11.1) K/mcL Hgb 8.6 L (11.5-15.4) g/dL Hct 27.3 L (35.3-44.9) % Plt Count 324 (140-400) K/mcL Neutrophils # 9.2 H (1.6-8.9) K/mcL BMP 03/12/17 04:50 Sodium 138 Potassium 4.1 Chloride 102 Carbon Dioxide 22 BUN 43 H Creatinine 1.90 H Glucose 130 H Calcium 8.5 L White blood cell count is stable. Hemoglobin has improved. Creatinine is basically slightly improved in overall stable consistent with her chronic kidney disease. - VTE Documentation of Mechanical Device: Graduated compression elastic hosiery Consult Discharge Plan - Plan Referrals: Denny Bergeron MD [Primary Care Provider] -
--- NOTE | 2017-03-12 12:32 | Physical Med Progress Note ---
Date of Encounter: 03/12/17 Time of Encounter: 12:30 Physical Medicine-PN: Subj Interval history: PMR PCC note Patient admitted with medical deconditioning. She has been able to maintain her O2 sats with therapies. She is progressing well with therapies. She is mod I for dressing. She is ambulating to and from therapy, maintaining 02 between 92-96% with standing exercises. Plan for discharge to home with home health on 03/13/17. - Constitutional Vitals: Vital Signs Temp Pulse Resp BP Pulse Ox 03/12/17 12:00 98.0 F 101 16 134/79 97 03/12/17 11:01 90 18 181/108 99 03/12/17 07:26 97.8 F 90 18 181/108 99 03/12/17 04:06 97.8 F 89 16 109/61 99 03/11/17 23:55 98.4 F 102 18 110/57 97 03/11/17 18:46 97.5 F L 107 16 145/88 90 Intake and Output 03/11/17 03/12/17 03/12/17 23:59 07:59 15:59 Intake Total 240 / 240 450 / 450 240 / 240 Output Total 600 / 600 350 / 350 200 / 200 Balance -360 / -360 100 / 100 40 / 40 Intake: Oral 240 / 240 450 / 450 240 / 240 Output: Urine 600 / 600 350 / 350 200 / 200 Other: Meal Dinner Breakfast Percent of Meal Consumed 60% 95% Weight 110.223 kg Blood Glucose* 207 125 Patient Weight 03/12/17 23:59 Weight 110.223 kg Physical Medicine-PN: Obj Data - Labs CBC & Chem 7: 03/12/17 04:50 03/12/17 04:50 Labs: Laboratory Results - last 24 hr 03/10/17 03/11/17 03/11/17 20:32 07:23 11:25 WBC RBC Hgb Hct MCV MCH MCHC RDW Plt Count MPV Immature Gran % Seg Neutrophils % Lymphocytes % Monocytes % Eosinophils % Basophils % Neutrophils # Lymphocytes # Monocytes # Eosinophils # Basophils # Sodium Potassium Chloride Carbon Dioxide BUN Creatinine Est GFR ( Amer) Est GFR (Non-Af Amer) BUN/Creatinine Ratio Glucose POC Glucose 98 H 118 H 157 H Calculated Osmolality Calcium 03/11/17 03/11/17 03/12/17 16:06 20:26 04:50 WBC 12.3 H RBC 2.78 L Hgb 8.6 L Hct 27.3 L MCV 98.2 MCH 30.9 MCHC 31.5 L RDW 15.3 H Plt Count 324 MPV 8.6 L Immature Gran % 1.8 Seg Neutrophils % 74.7 Lymphocytes % 11.5 Monocytes % 9.8 Eosinophils % 1.9 Basophils % 0.3 Neutrophils # 9.2 H Lymphocytes # 1.4 Monocytes # 1.2 Eosinophils # 0.2 Basophils # 0.0 Sodium Potassium Chloride Carbon Dioxide BUN Creatinine Est GFR ( Amer) Est GFR (Non-Af Amer) BUN/Creatinine Ratio Glucose POC Glucose 102 H 207 H Calculated Osmolality Calcium 03/12/17 03/12/17 04:50 08:01 WBC RBC Hgb Hct MCV MCH MCHC RDW Plt Count MPV Immature Gran % Seg Neutrophils % Lymphocytes % Monocytes % Eosinophils % Basophils % Neutrophils # Lymphocytes # Monocytes # Eosinophils # Basophils # Sodium 138 Potassium 4.1 Chloride 102 Carbon Dioxide 22 BUN 43 H Creatinine 1.90 H Est GFR ( Amer) 31 L Est GFR (Non-Af Amer) 26 L BUN/Creatinine Ratio 23 Glucose 130 H POC Glucose 139 H Calculated Osmolality 299 Calcium 8.5 L - VTE Documentation of Mechanical Device: Graduated compression elastic hosiery Consult Discharge Plan - Plan Referrals: Denny Bergeron MD [Primary Care Provider] -
[2017-03-13 07:07] VITALS: BP 136/88
--- NOTE | 2017-03-13 07:29 | Discharge Summary ---
Date of Encounter: 03/15/17 Time of Encounter: 07:06 - Discharge Diagnosis (1) Physical deconditioning Priority: Primary Status: Acute Comments: Patient is status post left nephrectomy by Dr. Gandara for renal mass. Pathology report is still pending. Postoperatively she had a hematoma on her spleen and had bleeding and required blood transfusion. She came to our facility with physical deconditioning and required PT and OT to help restore her ADLs. She has advanced nicely. She is ambulating with a walker. Sometimes she needs her oxygen for dyspnea and hypoxia. She always uses it at night time which is chronic for her. She has increased her ADLs and can return to home safely today with home health care and home physical therapy to be arranged. She will follow up in the office with me next week. (2) CKD (chronic kidney disease), stage III Priority: Secondary Status: Acute Comments: She has a history of chronic kidney disease. She had acute kidney injury postop but improved. She is basically at baseline for her creatinine. We are avoiding NSAID's. Follow-up will be arranged. (3) HTN (hypertension) Priority: Secondary Status: Chronic Comments: Her hypertension has been somewhat labile. At first she was very hypertensive and then hypotensive. We held her Cardizem/losartan and then she became hypertensive again. She is back on Lotensin losartan in addition to her Cardizem and metoprolol used for rate control for her atrial fibrillation. She will monitor her blood pressures at home and she follows up in the office next week. Qualifiers: Hypertension type: essential hypertension Qualified Code(s): I10 - Essential (primary) hypertension (4) Hypoxemia Priority: Secondary Status: Acute Comments: She chronically uses oxygen at night. During the day she is use oxygen during therapy if she becomes dyspneic or hypoxic. She will be using it when necessary during the day and uses every night at home. (5) Constipation Priority: Secondary Status: Inactive Comments: She difficulties getting her bowels to move. Finally after senna and lactulose she had 2 bowel movements in the past 24 hours. She denies any nausea or vomiting. She has good bowel sounds. She is no abdominal pain. She will me know if the senna is not helpful at home. Qualifiers: Constipation type: unspecified constipation type Qualified Code(s): K59.00 - Constipation, unspecified (6) Afib Priority: Secondary Status: Chronic Comments: She is a history of previous atrial flutter, paroxysmal atrial fibrillation and preoperatively she was in normal sinus rhythm. Postop she has been in atrial fibrillation. She has been rate controlled. Having had a previous retroperitoneal hemorrhage, and now with recent postoperative hemorrhage and splenic hematoma, it was decided to hold her Xarelto despite the risk of embolic event/CVA because of atrial fibrillation. Currently she still in what appears to be atrial fibrillation. We are still holding the Xarelto. She is taking a baby aspirin. She is rate controlled with her Cardizem and metoprolol. She will follow up with Dr. Martínez the supervisor metal cans. She has had no angina or CHF issues. Qualifiers: Atrial fibrillation type: chronic Qualified Code(s): I48.2 - Chronic atrial fibrillation (7) Spleen hematoma Priority: Secondary Status: Acute Comments: Her postop hemoglobin has risen a bit. She has had no abdominal pain or signs of acute hemorrhage. We have held her Xarelto Qualifiers: Encounter type: subsequent encounter Qualified Code(s): S36.029D - Unspecified contusion of spleen, subsequent encounter (8) Acute blood loss anemia Priority: Secondary Status: Acute Comments: Follow-up hemoglobins have started to rise. She is taking iron. (9) Sacral decubitus ulcer, stage II Priority: Secondary Status: Acute Comments: Approximately 1 cm healing superficial blister-type decubitus on the right buttock is covered with Allevyn and healing appropriately. Can be monitored by home health. (10) S/p nephrectomy Priority: Secondary Status: Acute Comments: Pathology report is still pending. She follows up with Dr. Gandara next week. (11) DVT prophylaxis Priority: Secondary Status: Inactive Comments: For DVT prophylaxis in the hospital we have used compression device for her lower extremities when in bed, elastic stockings, and frequent ambulation. We have avoided more aggressive anticoagulation because of her postop bleed. No signs of DVT at time of discharge. - Discharge Medications Prescriptions: Diltiazem CD (24hr) [Cardizem CD] 120 mg PO DAILY #30 cap.er.24h Sennosides/Docusate Sodium [Senna Plus] 2 each PO BID #30 tablet Home Medications: Atorvastatin [Lipitor] 40 mg PO HS tablet 06/12/15 [Rx] Losartan [Cozaar] 100 mg PO DAILY #30 tablet 06/12/15 [Rx] Aspirin Enteric Coated [Aspirin EC] 81 mg PO DAILY 07/18/15 [History] Furosemide [Lasix] 40 mg PO HS 09/05/15 [History] Potassium Chloride [Klor-Con Sprinkle] 10 meq PO BID 09/05/15 [History] Calcium Citrate/Vitamin D3 [Calcium Citrate-Vit D3 Tablet] 1 each PO DAILY 03/10 [History] Cholecalciferol (Vitamin D3) [Vitamin D3] 2,000 unit PO DAILY 03/10/16 [History] Glucosamine Sulfate Dipot Chlr [Glucosamine] 500 mg PO DAILY 03/10/16 [History] Ferrous Sulfate 325 mg PO BIDWM #60 tablet 07/04/16 [Rx] Metoprolol [Lopressor] 25 mg PO BID 02/28/17 [History] Vit C/Vit E/Lutein/Min/[place]-3 [Ocuvite Softgel] 1 each PO DAILY 02/28/17 [ History] Diltiazem CD (24hr) [Cardizem CD] 120 mg PO DAILY #30 cap.er.24h 03/13/17 [Rx] Levothyroxine [Synthroid] 88 mcg PO DAILY@0630 tablet 03/13/17 [Rx] Sennosides/Docusate Sodium [Senna Plus] 2 each PO BID #30 tablet 03/13/17 [Rx] Allergies/Adverse Reactions: Allergies No Known Allergies Allergy (Verified 02/28/17 08:34) Date of admission: 03/07/17 15:13 Primary care physician: Denny Bergeron MD Consults: 03/07/17 20:00 Consult to Occupational Therapy [CONS] Routine Comment: Evaluate, develop and implement POC Reason for Consult: eval and treat Consult to Physical Therapy [CONS] Routine Comment: Evaluate, develop and implement POC Reason for Consult: eval and treat Consult to Recreational Therapy [CONS] Routine Comment: Evaluate, develop and implement POC Consult to Wire Splicer [CONS] Routine Reason for SW Consult: eval and treat 03/08/17 01:35 Consult to Wound Care [CONS] Routine Reason for Consult: coccyx wound Time Notified: 01:38 Call Completed: Yes Discharging clinician: Denny Bergeron Anticipated date of discharge: 03/13/17 - Patient Status Disposition: Home Health Service Condition: Good Functional capacity at discharge: uses cane/walker Overall status at discharge: patient is not back to baseline - Discharge Instructions Instructions: Wound Infection (DC), Nephrectomy (DC), Weakness (GEN) Follow Up With: Edvin Gandara MD [Partnered Physician] - 03/20/17 8:45 am Denny Bergeron MD [Primary Care Provider] - 03/21/17 11:00 am - Diet and Activity Activity: as per physical therapy, increase activity as tolerated Diet: low fat, low cholesterol Interval History: Overnight patient slept well. She thinks she is ready to go home today. She states she does not require any narcotic pain medication. She denies any cardiac, respiratory or GI or symptoms other than her bowels have not been moving well. She has had a couple small bowel movements in the past 24 hours. She is ambulating with a walker. Hospital course: Ms. Jeffries is a 76 year old female [facility]conditioning status post nephrectomy. She has done well with her therapies. Please see the list of diagnoses and associated summaries. She will be discharged home today. Follow up in the office has been arranged. Home health and home physical therapy arranged as well. - Time Spent with Patient Total time spent providing and/or coordinating discharge services: - Constitutional Vitals: Temp Pulse Resp BP Pulse Ox 98.8 F 98 19 128/79 93 03/13/17 03:00 03/13/17 03:00 03/13/17 03:00 03/13/17 03:00 03/13/17 03:00 General appearance: Present: A&O X 3, no acute distress, obese, answers questions appropriately - Respiratory Respiratory exam: Present: CTAB. Absent: respiratory distress - Cardiovascular Cardiovascular exam: Present: irregular rhythm, systolic murmur (2/6 systolic murmur, controlled rate) - GI/Abdominal GI/Abdominal exam: Present: soft, no peritoneal signs. Absent: guarding, tenderness - Extremities Exam Additional comments: Trace amount of ankle edema. No calf tenderness. - Incison Incision: Present: clean and dry, intact. Absent: draining, erythema - VTE Documentation of Mechanical Device: Venous foot pump, device
--- NOTE | 2017-03-13 07:31 | Physician Discharge Referral ---
Home Health/Hosp Referral Info Attending Provider: Provider in Charge Post Discharge: PCP - Diagnosis (1) Physical deconditioning Status: Acute (2) CKD (chronic kidney disease), stage III Status: Acute (3) HTN (hypertension) Status: Chronic (4) Hypoxemia Status: Acute (5) Constipation Status: Inactive (6) Afib Status: Chronic (7) Spleen hematoma Status: Acute (8) Acute blood loss anemia Status: Acute (9) Sacral decubitus ulcer, stage II Status: Acute (10) S/p nephrectomy Status: Acute (11) DVT prophylaxis Status: Inactive - Respiratory Orders Oxygen / L per min (2 L/NC at hs and prn dyspnea) Smoking Cessation: Smoking cessation has been advised. For more information, call the [employer] Quit Line at [phone]. - Diet/Nutrition Diet/Nutrition Orders: Cardiac - Activity Activity Orders: Walker - Services Needed Following services are medically necessary services: Nursing, Home Health Aide, Physical Therapy - Transfer Medications Prescriptions: Diltiazem CD (24hr) [Cardizem CD] 120 mg PO DAILY #30 cap.er.24h Sennosides/Docusate Sodium [Senna Plus] 2 each PO BID #30 tablet Home Medications: Atorvastatin [Lipitor] 40 mg PO HS tablet 06/12/15 [Rx] Losartan [Cozaar] 100 mg PO DAILY #30 tablet 06/12/15 [Rx] Aspirin Enteric Coated [Aspirin EC] 81 mg PO DAILY 07/18/15 [History] Furosemide [Lasix] 40 mg PO HS 09/05/15 [History] Potassium Chloride [Klor-Con Sprinkle] 10 meq PO BID 09/05/15 [History] Calcium Citrate/Vitamin D3 [Calcium Citrate-Vit D3 Tablet] 1 each PO DAILY 03/10 [History] Cholecalciferol (Vitamin D3) [Vitamin D3] 2,000 unit PO DAILY 03/10/16 [History] Glucosamine Sulfate Dipot Chlr [Glucosamine] 500 mg PO DAILY 03/10/16 [History] Ferrous Sulfate 325 mg PO BIDWM #60 tablet 07/04/16 [Rx] Metoprolol [Lopressor] 25 mg PO BID 02/28/17 [History] Vit C/Vit E/Lutein/Min/[place]-3 [Ocuvite Softgel] 1 each PO DAILY 02/28/17 [ History] Diltiazem CD (24hr) [Cardizem CD] 120 mg PO DAILY #30 cap.er.24h 03/13/17 [Rx] Levothyroxine [Synthroid] 88 mcg PO DAILY@0630 tablet 03/13/17 [Rx] Sennosides/Docusate Sodium [Senna Plus] 2 each PO BID #30 tablet 03/13/17 [Rx] Allergies/Adverse Reactions: Allergies No Known Allergies Allergy (Verified 02/28/17 08:34) Certification: Further, I certify that my clinical findings support that this patient is homebound (i.e. absences from home require considerable and taxing effort and are for medical reasons or worship services or infrequently or short duration when for other reasons) because: Homebound Reason: Patient requires assistance of a person or device to safely leave home, Post-surgery restriction and or conditions limit ability to leave home, Leaving home requires considerable and taxing effort due to condition Attestation: My signature below is to certify that this patient is under my care and that I, or nurse practitioner, or a physician's assistant golf professional working with me, has a face-to -face encounter with this patient.
[2017-03-13] MEDS: Sennosides/Docusate Sodium TABLET PO SCH (09:09)
[2017-03-13] MEDS: Furosemide 40 MG TABLET PO SCH (09:09)
[2017-03-13] MEDS: Aspirin Enteric Coated 81 MG Tablet PO SCH (09:09)
[2017-03-13] MEDS: Cholecalciferol (D-3) 1,000 UNIT TABLET PO SCH (09:09)
[2017-03-13] MEDS: Diltiazem CD (24hr) 120 MG CAPSULE PO SCH (09:09)
[2017-03-13] MEDS: GLUCOSAMINE SULFATE DIPOT CHLR 500 MG PO SCH (09:10)
[2017-03-13] MEDS: VIT C PO SCH (09:10)
[2017-03-13] MEDS: VIT E PO SCH (09:10)
[2017-03-13] MEDS: [UNRECOGNIZED DRUG - OTHER] PO SCH (09:10)
[2017-03-13] MEDS: LUTEIN PO SCH (09:10)
[2017-03-13] MEDS: Insulin LISPRO 300 UNITS/3 ML VIAL SQ SCH (09:10)
[2017-03-13] MEDS: Lactulose Oral Soln 20 GM/30 ML UDC PO PRN (09:12)
== END 2017-03-13 11:40 | disposition home health service (06) | DRG 949 ==
LOC: INPGRE 15:13
PROVIDERS: ADMIT Family Medicine; ATTEND Family Medicine

== ENCOUNTER 2017-04-21 18:40 | Observation (INO) ==
--- NOTE | 2017-04-21 19:12 | Emergency Department Note ---
Disposition Clinical Impression: Anemia Disposition: Admitted As Inpatient Condition: Good Referrals: Denny Bergeron MD [Primary Care Provider] - Forms: Work/School Release, ED Satisfaction Letter Time of Disposition: 20:03 General Adult HPI - General Chief complaint: ED General Medical Stated complaint: dizziness, heart racing Time Seen by Provider: 04/21/17 18:59 Source: patient Limitations: no limitations Nursing Notes Reviewed: Yes Vital Signs Reviewed: Yes - History of Present Illness HPI Narrative: 76-year-old female who ambulated to the ED complaining of dizziness and weakness. This been going on and off for the past 2 weeks. Her blood pressure been running low. Her family physician stopped her blood pressure medications. She has no energy. No shortness of breath. No chest pain. No nausea vomiting no diarrhea. Pain Scale: 0 - Related Data Home Medications Medication Instructions Recorded Confirmed Aspirin Enteric Coated [Aspirin EC] 81 mg PO DAILY 07/18/15 02/28/17 Furosemide [Lasix] 40 mg PO HS 09/05/15 02/28/17 Potassium Chloride [Klor-Con 10 meq PO BID 09/05/15 02/28/17 Sprinkle] Calcium Citrate/Vitamin D3 1 each PO DAILY 03/10/16 02/28/17 [Calcium Citrate-Vit D3 Tablet] Cholecalciferol (Vitamin D3) 2,000 unit PO DAILY 03/10/16 02/28/17 [Vitamin D3] Glucosamine Sulfate Dipot Chlr 500 mg PO DAILY 03/10/16 02/28/17 [Glucosamine] Metoprolol [Lopressor] 25 mg PO BID 02/28/17 02/28/17 Vit C/Vit E/Lutein/Min/[place]-3 1 each PO DAILY 02/28/17 02/28/17 [Ocuvite Softgel] Previous Rx's Medication Instructions Recorded Atorvastatin [Lipitor] 40 mg PO HS tablet 06/12/15 Losartan [Cozaar] 100 mg PO DAILY #30 tablet 06/12/15 Ferrous Sulfate 325 mg PO BIDWM #60 tablet 07/04/16 Diltiazem CD (24hr) [Cardizem CD] 120 mg PO DAILY #30 cap.er.24h 03/13/17 Levothyroxine [Synthroid] 88 mcg PO DAILY@0630 tablet 03/13/17 Sennosides/Docusate Sodium [Senna 2 each PO BID #30 tablet 03/13/17 Plus] Allergies Allergy/AdvReac Type Severity Reaction Status Date / Time No Known Allergies Allergy Verified 02/28/17 08:34 All systems ED: reviewed and negative except as stated. Constitutional: Denies: fever, chills, weakness, weight change Cardiovascular: Denies: chest pain, palpitations, dyspnea on exertion, edema, syncope Respiratory: Denies: cough, dyspnea, wheezes, hemoptysis, stridor Gastrointestinal: Denies: abdominal pain, nausea, vomiting, diarrhea, constipation, hematemesis, melena, hematochezia Genitourinary: Denies: dysuria, frequency, hematuria, discharge Musculoskeletal: Denies: back pain, neck pain, arthralgia, myalgia Neurological: Reports: weakness. Denies: headache, numbness, paresthesias, confusion, abnormal gait, vertigo Psychiatric: Denies: anxiety, depression, suicidal thoughts, homicidal thoughts , auditory hallucinations, visual hallucinations Endocrine: Reports: fatigue Hematological/Lymphatic: Denies: easy bleeding, easy bruising Past Medical History - Past Medical History Medical history: Reports: arthritis, atrial fibrillation, cancer, hyperlipidemia , hypertension, malignancy, renal disease, thyroid disease, other Surgical history: Reports: breast surgery (2008 masectomy), cancer surgery, cataract (2002, 2010), hip replacement (left 06/24/16), orthopedic, other (1988 rotator cuff repair, 1979 carpal tunnel release x3, , trigger finger bilateral 4th digits and left thumb), sinus surgery (2005), other (1983 BPS, tonsils child , skin bx 2012, cardiac ablation 2013, 2009 colonoscopy, d&C 09/2015, 02/20/2017 left hand assisted laparoscopic nephrectomy for renal mass) Psychiatric history: Reports: no psych history 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 Absent: tenderness, distention, guarding, rebound, rigidity - Extremities Exam Extremities exam: Present: normal inspection, full ROM. Absent: tenderness, pedal edema - Expanded Lower Extremity Exam Neurovascular/Tendon exam: Absent: motor deficit, sensory deficit, tendon deficit - Back Exam Back exam: Present: normal inspection, full ROM. Absent: tenderness - Neurological Exam Neurological exam: Present: alert, oriented X3 - Psychiatric Psychiatric exam: Present: normal affect, normal mood - Skin Skin exam: Present: warm, dry, intact, normal color Course Vital Signs Temperature 97.6 F 04/21/17 18:55 Pulse Rate 105 04/21/17 18:55 Respiratory Rate 20 04/21/17 18:55 Blood Pressure 114/75 04/21/17 18:55 O2 Sat by Pulse Oximetry 100 04/21/17 18:55 Temperature 97.6 F 04/21/17 18:55 Pulse Rate 105 04/21/17 18:55 Respiratory Rate 20 04/21/17 18:55 Blood Pressure 114/75 04/21/17 18:55 O2 Sat by Pulse Oximetry 100 04/21/17 18:55 Oxygen Delivery Oxygen Delivery Room Air Medical Decision Making - [facility] Narrative Medical decision making narrative: Diagnosis dizziness Plan. The patient's care will return over to Dr. Mckinley for further management - Lab Data Lab Results 04/21/17 Range/Units 18:44 POC Glucose 99 H (58-89)
[2017-04-21] MEDS: 0.9 % Sodium Chloride 1,000 ML IVC ONE (19:33)
[2017-04-21 19:45] LABS: Basophils % 0.3 %; Eosinophils # 0.2 K/mcL (0.0-0.6); Eosinophils % 2.2 %; Hematocrit 21.7 % (35.3-44.9); Hemoglobin 6.9 g/dL (11.5-15.4); Immature Granulocytes % 0.9 % (0-4); Lymphocytes % 20.2 %; Mean Corpuscular HGB Conc 31.8 g/dL (31.6-35.5); Mean Corpuscular Hemoglobin 32.7 pg (28.0-33.3); Mean Platelet Volume 8.9 fL (9.4-12.4); Monocytes # 0.9 K/mcL (0.0-1.3); Neutrophils # 6.6 K/mcL (1.6-8.9); Nucleated Red Blood Cells 0.3 /100 WBC (0); Platelet Count 330 K/mcL (140-400); Red Blood Count 2.11 M/mcL (3.82-4.97); Red Cell Distribution Width 18.7 % (11.5-14.5); Segmented Neutrophils % 67.4 %
[2017-04-21 19:56] LABS: Albumin 3.5 g/dL (3.5-5.0); Albumin/Globulin Ratio 1.1 (1.1-2.2); Bilirubin,Total 0.5 mg/dL (0.2-1.2); Calcium 10.1 mg/dL (8.6-10.8); Globulin 3.1 g/dL (2.4-3.5); Potassium 3.5 mEq/L (3.5-4.5); Total Protein 6.6 g/dL (6.0-8.3)
[2017-04-21 20:14] LABS: Mean Corpuscular Volume 102.8 fL (83.0-100.0)
[2017-04-21] MEDS ORDERED: Naloxone 0.4 MG/ML INJ IVP PRN (22:59)
[2017-04-21] MEDS ORDERED: *HR* HYDROcodone/Acet 5/325 mg TABLET PO PRN (22:59)
[2017-04-21] MEDS ORDERED: *HR* Morphine 2 MG/ML SYRINGE IVP PRN (22:59)
[2017-04-21] MEDS ORDERED: Acetaminophen 325 MG TABLET PO PRN (22:59)
[2017-04-21] MEDS ORDERED: Ondansetron ODT 4 MG TAB.RAPDIS SL PRN (22:59)
[2017-04-21] MEDS ORDERED: Ondansetron 4 MG/2 ML VIAL IVP PRN (22:59)
[2017-04-22] MEDS: Acetaminophen 325 MG TABLET PO PRN (00:36)
[2017-04-22] MEDS: 0.9 % Sodium Chloride 500 ML ONE (01:09)
[2017-04-22 06:55] LABS: Basophils % 0.1 %; Eosinophils # 0.2 K/mcL (0.0-0.6); Eosinophils % 2.8 %; Hematocrit 19.4 % (35.3-44.9); Hemoglobin 6.1 g/dL (11.5-15.4); Immature Granulocytes % 0.7 % (0-4); Lymphocytes # 2.1 K/mcL (0.6-4.6); Lymphocytes % 28.5 %; Mean Corpuscular HGB Conc 31.4 g/dL (31.6-35.5); Mean Corpuscular Hemoglobin 31.3 pg (28.0-33.3); Mean Corpuscular Volume 99.5 fL (83.0-100.0); Mean Platelet Volume 8.7 fL (9.4-12.4); Monocytes # 0.6 K/mcL (0.0-1.3); Neutrophils # 4.5 K/mcL (1.6-8.9); Platelet Count 239 K/mcL (140-400); Red Blood Count 1.95 M/mcL (3.82-4.97); Red Cell Distribution Width 19.4 % (11.5-14.5); Segmented Neutrophils % 59.9 %
--- NOTE | 2017-04-22 07:19 | Internal Med History&Physical ---
Date of Encounter: 04/22/17 Time of Encounter: 07:13 Assessment and Plan (1) Anemia Current visit: Yes Status: Acute Patient was admitted with symptomatic anemia, hemoglobin 6.9, atrial fibrillation with RVR, dyspnea and palpitations. Her stool testing was negative for occult blood. No history of obvious GI bleed. Does have acute kidney injury on chronic renal kidney disease. She will receive blood until her hemoglobin is safe to send her home. If she becomes unstable, acute hemorrhage, etc. then she will be transferred to [place]. Could be multiple etiologies for the anemia including acute kidney injury on chronic kidney disease, occult GI loss or other. She has not had endoscopy in several years. Qualifiers: Anemia type: unspecified type Qualified Code(s): D64.9 - Anemia, unspecified (2) Afib Current visit: Yes Status: Acute The patient was admitted in the ER she was in atrial fibrillation with RVR. After admission and on the floor she has been in normal sinus rhythm. She has no tachycardia or palpitations or dyspnea now. Chronically she is anticoagulated because of paroxysmal atrial fibrillation. However, with her significant life-threatening anemia I am going to hold the Xarelto. No evidence of an acute NV or congestive heart failure. Qualifiers: Atrial fibrillation type: paroxysmal Qualified Code(s): I48.0 - Paroxysmal atrial fibrillation (3) HTN (hypertension) Current visit: Yes Status: Chronic History of chronic hypertension. She became hypotensive in the past week or so and her losartan was held. She was seen by nephrology and agreed about holding the losartan particularly because of the decreasing GFR. Blood pressure was controlled currently. Qualifiers: Hypertension type: essential hypertension Qualified Code(s): I10 - Essential (primary) hypertension (4) CKD (chronic kidney disease) stage 3, GFR 30-59 ml/min Current visit: Yes Status: Acute Chronic kidney disease with acute kidney injury recently. Received IV fluids as an outpatient per Dr. Thompson. Her creatinine is actually improved this morning after IV fluids and unit of blood. Internal Medicine - H&P: HPI Chief complaint: "My heart was going crazy", "I was short of breath","blood pressure was low Admitted From: Emergency Dept Plans for Post Hospital Care: Home History of present illness: Ms. Jeffries is a 76 year old female with known history of intermittent atrial fibrillation and anticoagulated with Xarelto, recent nephrectomy for renal cancer last month and had intraoperative splenic hematoma , worsening of her chronic kidney disease, history of hypertension and multiple other medical problems. 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 Her last hemoglobin was 8.8. Her blood pressure had been low just prior to that and her losartan had been held by me. Patient states that she has been having generalized weakness the past few days, but on the day of admission before coming to the ER her blood pressure was 90 systolic, her pulse was over 100, she felt that her heart was "going crazy" and she became short of breath. She was brought to the emergency room was found to have hemoglobin of 6.9, tachycardia and atrial fibrillation. Patient was admitted to observation bed for blood transfusion. She told me that she felt better after having received some IV fluids, and much better after 1 unit of blood through the night. She denies any angina, dyspnea, palpitations, lightheadedness currently. It is reported that her monitor now shows normal sinus rhythm and pulse in the 80s. Patient denies change in her chronically dark stool from iron. She denies any blood per rectum. She denies any upper abdominal pain, nausea or vomiting, hematemesis. I do not see any documentation of having had a colonoscopy since [address] Mora. She has never had upper endoscopy that she is aware of. Past Med Surg Social Fam HX - Past Medical History Medical history: arthritis, atrial fibrillation (Intermittent atrial fibrillation, anticoagulated with Xarelto), cancer (History of breast cancer and renal cancer), hyperlipidemia, hypertension, malignancy (Breast cancer and renal cancer), renal disease, thyroid disease (Hypothyroidism), other Psychiatric history: no psych history - Past Surgical History Surgical History: breast surgery (2008 masectomy), cancer surgery, cataract ( 2002, 2010), hip replacement (left 06/24/16), orthopedic, other (1988 rotator cuff repair, 1979 carpal tunnel release x3, , trigger finger bilateral 4th digits and left thumb), sinus surgery (2005), other (1983 BPS, tonsils child, skin bx 2012, cardiac ablation 2013, 2009 colonoscopy, d&C 09/2015, 02/20/2017 left hand assisted laparoscopic nephrectomy for renal mass) - Social History Smoking Status: Never smoker Smokeless Tobacco Status: No Alcohol use: none Drug use: none - Family History Mother Living Status: Hx Family Cardiac Disorders: Yes (htn, chf ) Hx Family Neurologic Disorders: Yes (aneurysm) Father Living Status: Hx Family Cardiac Disorders: Yes (cad,mi) Hx Family Cancer: Yes (lymphoma) Internal Medicine - H&P: Meds Atorvastatin [Lipitor] 40 mg PO HS tablet 06/12/15 [Rx] Aspirin Enteric Coated [Aspirin EC] 81 mg PO DAILY 07/18/15 [History] Furosemide [Lasix] 40 mg PO DAILY 09/05/15 [History] Potassium Chloride [Klor-Con Sprinkle] 10 meq PO BID 09/05/15 [History] Calcium Citrate/Vitamin D3 [Calcium Citrate-Vit D3 Tablet] 1 each PO DAILY 03/10 [History] Cholecalciferol (Vitamin D3) [Vitamin D3] 2,000 unit PO DAILY 03/10/16 [History] Glucosamine Sulfate Dipot Chlr [Glucosamine] 500 mg PO DAILY 03/10/16 [History] Metoprolol [Lopressor] 25 mg PO BID 02/28/17 [History] Vit C/Vit E/Lutein/Min/[place]-3 [Ocuvite Softgel] 1 each PO DAILY 02/28/17 [ History] Levothyroxine [Synthroid] 88 mcg PO DAILY@0630 tablet 03/13/17 [Rx] Ferrous Sulfate 325 mg PO BID 04/21/17 [History] Oxybutynin Chloride [Ditropan Xl] 10 mg PO DAILY 04/21/17 [History] Rivaroxaban [Xarelto] 15 mg PO DAILY 04/21/17 [History] Allergies No Known Allergies Allergy (Verified 02/28/17 08:34) - Constitutional Constitutional: fatigue, malaise, no fever(s), no falls, no night sweats - EENT Eyes: no change in vision Ears: decreased hearing (Profoundly hard of hearing, wears one hearing aid.), no ear discharge, no ear pain Nose, mouth and throat: no sore throat - Cardiovascular Cardiovascular ROS IM: dyspnea, dyspnea on exertion, palpitations, no chest pain , no edema, no syncope - Respiratory Respiratory: dyspnea, no hemoptysis, no chest congestion - Gastrointestinal Gastrointestinal: no abdominal pain, no coffee ground emesis, no constipation, no diarrhea, no hematemesis Additional comments: Patient states her stools are always dark since starting the iron. No change in that color or consistency recently (heme-negative stool in the ER) - Genitourinary Genitourinary: no dysuria, no hematuria - Musculoskeletal Musculoskeletal ROS IM: back pain (Chronic back pain and uncomfortable in bed last night.), no muscle weakness - Integumentary Integumentary IM: no rash - Neurological Neurological ROS: no frequent falls, no loss of vision - Psychiatric Psychiatric: no depression - Constitutional Vitals: Temp Pulse Resp BP Pulse Ox 98.1 F 83 14 118/66 99 04/22/17 04:05 04/22/17 04:05 04/22/17 04:05 04/22/17 04:05 04/22/17 04:05 General appearance: Present: A&O X 3, morbidly obese, no acute distress, answers questions appropriately - Eye Eye exam: Present: EOMI. Absent: conjunctival injection, scleral icterus - ENT ENT exam: Present: mucous membranes moist, TM's normal bilaterally - Neck Neck exam general surgery: Absent: lymphadenopathy, thyromegaly - Respiratory Respiratory exam: Present: CTAB. Absent: respiratory distress - Cardiovascular Cardiovascular exam: Present: RRR, +S1, +S2. Absent: systolic murmur - GI/Abdominal GI/Abdominal exam: Present: soft. Absent: mass, splenomegaly, tenderness, no peritoneal signs - Extremities Exam Extremities exam: Present: normal capillary refill. Absent: calf tenderness, mottling, pedal edema - Neurological Exam Neurological exam: Present: CN II-XII intact (Except she is hard of hearing and wears a hearing aid), oriented X3 Internal Med - H&P Results - Labs CBC & Chem 7: 04/22/17 15:15 04/22/17 06:30 Labs: Short CBC 04/22/17 Range/Units 06:30 WBC 7.5 (4.3-11.1) K/mcL Hgb 6.1 L (11.5-15.4) g/dL Hct 19.4 L (35.3-44.9) % Plt Count 239 (140-400) K/mcL Neutrophils # 4.5 (1.6-8.9) K/mcL Hemoglobin was 6.9 on admission. After 1 unit of blood it is 6.1. Renal function is improved from last week. 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 EKG in the ER was atrial fibrillation. - VTE Reasons for not Prescribing Prophylaxis: Medical contraindication Documentation of Mechanical Device: Graduated compression elastic hosiery
[2017-04-22] MEDS: Aspirin Enteric Coated 81 MG Tablet PO SCH (08:43)
[2017-04-22] MEDS: Cholecalciferol (D-3) 1,000 UNIT TABLET PO SCH (08:43)
[2017-04-22] MEDS: Furosemide 40 MG TABLET PO SCH (08:43)
[2017-04-22] MEDS: CALCIUM CITRATE PO SCH (08:45)
[2017-04-22] MEDS: VITAMIN D3 PO SCH (08:45)
[2017-04-22] MEDS: VIT C PO SCH (08:46)
[2017-04-22] MEDS: VIT E PO SCH (08:46)
[2017-04-22] MEDS: GLUCOSAMINE SULFATE DIPOT CHLR 500 MG PO SCH (08:46)
[2017-04-22] MEDS: LUTEIN PO SCH (08:46)
[2017-04-22] MEDS: OMEGA E PO SCH (08:46)
[2017-04-22 10:43] LABS: Calcium 8.8 mg/dL (8.6-10.8); Potassium 3.5 mEq/L (3.5-4.5)
--- NOTE | 2017-04-22 19:07 | Discharge Summary ---
Date of Encounter: 04/22/17 Time of Encounter: 19:05 - Discharge Diagnosis (1) Anemia Priority: Primary Status: Acute Comments: Patient has chronic anemia and takes iron. She has known chronic kidney disease as well. Patient was admitted with weakness, tachycardia, dyspnea and was found to have atrial fibrillation with RVR and hemoglobin is 6.9. She was admitted to an observation bed. After having IV fluids she converted to normal sinus rhythm. She was given a total of 2 units of blood. Her hemoglobin went from 6.9 to 6.1 and then to 8.4. She is no cardiac or respiratory symptoms currently. Her vitals are stable. She is up and around in the room. Her heme testing of stool was negative. At this time we will send her home and make follow-up arrangements with nephrology as well as Dr. Mora for endoscopy to find a potential source of bleeding. I have held her Xarelto Qualifiers: Anemia type: unspecified type Qualified Code(s): D64.9 - Anemia, unspecified (2) Afib Priority: Secondary Status: Resolved Comments: On admission she had atrial fibrillation. After IV fluids and admission to the floor she converted to normal sinus rhythm. She has had no angina, no dyspnea, no CHF. She has a history of paroxysmal atrial fibrillation and has been anticoagulated with Xarelto. I have held her Xarelto. She will continue her other medications. 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 Qualifiers: Atrial fibrillation type: paroxysmal Qualified Code(s): I48.0 - Paroxysmal atrial fibrillation (3) HTN (hypertension) Priority: Secondary Status: Chronic Comments: Patient has a history chronic hypertension. Last week we held her losartan because of hypotension. She saw nephrology and he agreed with holding the losartan because of increasing GFR. Her blood pressure has been stable. Qualifiers: Hypertension type: essential hypertension Qualified Code(s): I10 - Essential (primary) hypertension (4) CKD (chronic kidney disease) stage 3, GFR 30-59 ml/min Priority: Secondary Status: Chronic Comments: Patient has a history of chronic kidney disease with recent acute kidney injury. Her creatinine improved to 1.54 after IV fluids and a unit of blood. She has seen nephrology recently. She was to have an IV infusion of fluids on but that was canceled because of this observation status and receiving fluids. - Discharge Medications Home Medications: Atorvastatin [Lipitor] 40 mg PO HS tablet 06/12/15 [Rx] Aspirin Enteric Coated [Aspirin EC] 81 mg PO DAILY 07/18/15 [History] Furosemide [Lasix] 40 mg PO DAILY 09/05/15 [History] Potassium Chloride [Klor-Con Sprinkle] 10 meq PO BID 09/05/15 [History] Calcium Citrate/Vitamin D3 [Calcium Citrate-Vit D3 Tablet] 1 each PO DAILY 03/10 [History] Cholecalciferol (Vitamin D3) [Vitamin D3] 2,000 unit PO DAILY 03/10/16 [History] Glucosamine Sulfate Dipot Chlr [Glucosamine] 500 mg PO DAILY 03/10/16 [History] Metoprolol [Lopressor] 25 mg PO BID 02/28/17 [History] Vit C/Vit E/[place]utein/Min/[place]-3 [Ocuvite Softgel] 1 each PO DAILY 02/28/17 [ History] Levothyroxine [Synthroid] 88 mcg PO DAILY@0630 tablet 03/13/17 [Rx] Ferrous Sulfate 325 mg PO BID 04/21/17 [History] Oxybutynin Chloride [Ditropan Xl] 10 mg PO DAILY 04/21/17 [History] Allergies/Adverse Reactions: Allergies No Known Allergies Allergy (Verified 02/28/17 08:34) Procedures/tests Complete & Pending: Laboratory Results - last 48 hr 04/21/17 04/21/17 04/21/17 18:44 19:30 19:30 WBC 9.7 RBC 2.11 L Hgb 6.9 L Hct 21.7 L MCV 102.8 H D MCH 32.7 MCHC 31.8 RDW 18.7 H Plt Count 330 MPV 8.9 L Immature Gran % 0.9 Seg Neutrophils % 67.4 Lymphocytes % 20.2 Monocytes % 9.0 Eosinophils % 2.2 Basophils % 0.3 Neutrophils # 6.6 Lymphocytes # 2.0 Monocytes # 0.9 Eosinophils # 0.2 Basophils # 0.0 Nucleated RBCs/100 WBC 0.3 H Sodium 144 Potassium 3.5 Chloride 105 Carbon Dioxide 26 BUN 26 H Creatinine 1.58 H Est GFR ( Amer) 39 L Est GFR (Non-Af Amer) 32 L BUN/Creatinine Ratio 16 Glucose 109 H POC Glucose 99 H Calculated Osmolality 303 H Calcium 10.1 Total Bilirubin 0.5 AST 16 ALT 9 Alkaline Phosphatase 64 Troponin I Serum Total Protein 6.6 Albumin 3.5 Globulin 3.1 Albumin/Globulin Ratio 1.1 Stool Occult Blood Blood Type Antibody Screen Crossmatch 04/21/17 04/21/17 04/21/17 19:30 21:00 21:50 WBC RBC Hgb Hct MCV MCH MCHC RDW Plt Count MPV Immature Gran % Seg Neutrophils % Lymphocytes % Monocytes % Eosinophils % Basophils % Neutrophils # Lymphocytes # Monocytes # Eosinophils # Basophils # Nucleated RBCs/100 WBC Sodium Potassium Chloride Carbon Dioxide BUN Creatinine Est GFR ( Amer) Est GFR (Non-Af Amer) BUN/Creatinine Ratio Glucose POC Glucose Calculated Osmolality Calcium Total Bilirubin AST ALT Alkaline Phosphatase Troponin I 0.03 Serum Total Protein Albumin Globulin Albumin/Globulin Ratio Stool Occult Blood Negative Blood Type A POSITIVE Antibody Screen NEGATIVE Crossmatch See Detail 04/22/17 04/22/17 04/22/17 06:30 06:30 15:15 WBC 7.5 RBC 1.95 L Hgb 6.1 L 8.4 L D Hct 19.4 L MCV 99.5 MCH 31.3 MCHC 31.4 L RDW 19.4 H Plt Count 239 MPV 8.7 L Immature Gran % 0.7 Seg Neutrophils % 59.9 Lymphocytes % 28.5 Monocytes % 8.0 Eosinophils % 2.8 Basophils % 0.1 Neutrophils # 4.5 Lymphocytes # 2.1 Monocytes # 0.6 Eosinophils # 0.2 Basophils # 0.0 Nucleated RBCs/100 WBC Sodium 143 Potassium 3.5 Chloride 109 Carbon Dioxide 25 BUN 22 H Creatinine 1.44 H Est GFR ( Amer) 43 L Est GFR (Non-Af Amer) 36 L BUN/Creatinine Ratio 15 Glucose 92 POC Glucose Calculated Osmolality 299 Calcium 8.8 Total Bilirubin AST ALT Alkaline Phosphatase Troponin I Serum Total Protein Albumin Globulin Albumin/Globulin Ratio Stool Occult Blood Blood Type Antibody Screen Crossmatch Date of admission: 04/21/17 21:57 Primary care physician: Denny Bergeron MD Consults: 04/22/17 01:31 Consult to Nutrition [CONS] Routine Comment: Consulting Provider: NUTRITION Reason for Dietary Consult: MST Score Discharging clinician: Denny Bergeron Anticipated date of discharge: 04/22/17 - Patient Status Disposition: Home, Self-Care Functional capacity at discharge: independent ambulation Overall status at discharge: patient is back to baseline - Discharge Instructions Follow Up With: Denny Bergeron MD [Primary Care Provider] - - Diet and Activity Activity: increase activity as tolerated, wear oxygen at night Diet: low fat, low cholesterol, low salt diet Interval History: After patient's second unit of blood her hemoglobin is 8.4. She has been up and about the room. No tachycardia, no resuming atrial fibrillation. She feels good. Her vitals are stable. No signs of active bleeding. She will be sent home and will initiate further workup as an outpatient. Sophie has been held Hospital course: Ms. Jeffries is a 76 year old female was admitted with anemia, atrial fibrillation with RVR and received IV fluids, 2 units of blood. No active bleeding was noted. Vitals are stable. Please see the above diagnoses. Outpatient follow-up to be arranged. - Time Spent with Patient Total time spent providing and/or coordinating discharge services: - Constitutional Vitals: Temp Pulse Resp BP Pulse Ox 97.4 F L 16 18 126/61 95 04/22/17 16:00 04/22/17 16:00 04/22/17 16:00 04/22/17 16:00 04/22/17 04:10 General appearance: Present: A&O X 3, morbidly obese, no acute distress, answers questions appropriately - Respiratory Respiratory exam: Present: CTAB - Cardiovascular Cardiovascular exam: Present: RRR, +S1, +S2, systolic murmur (2/6 systolic murmur) - GI/Abdominal GI/Abdominal exam: Present: soft. Absent: tenderness - Extremities Exam Extremities exam: Absent: pedal edema - VTE Reasons for not Prescribing Prophylaxis: Medical contraindication Documentation of Mechanical Device: Graduated compression elastic hosiery
[2017-04-22 19:17] VITALS: BP 110/85
--- NOTE | 2017-04-24 11:50 | Electrocardiograph Report ---
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
== END 2017-04-22 19:45 | disposition home or self-care (01) ==
LOC: EMEROOGRE 18:40 → INPGRE 18:40
PROVIDERS: ADMIT Family Medicine; ATTEND Family Medicine

== ENCOUNTER 2019-01-05 12:55 | Inpatient (IN) ==
[2019-01-05] MEDS ORDERED: *HR* OxyCODONE Immed Rel 5 MG TABLET PO PRN (16:53)
[2019-01-05] MEDS ORDERED: Ondansetron ODT 4 MG TAB.RAPDIS SL PRN (17:13)
[2019-01-05] MEDS: *HR* Morphine Immed Rel 30 MG TABLET PO SCH (18:07)
[2019-01-05] MEDS: Cholecalciferol (D-3) 1,000 UNIT TABLET PO SCH (21:29)
[2019-01-05] MEDS: (Glucosamine Sulfate Dipot Chlr [Glucosamine] 1,000 MG) PO SCH (21:34)
[2019-01-06] MEDS: *HR* Morphine Immed Rel 30 MG TABLET PO SCH ×2 (05:55→17:15)
[2019-01-06] MEDS: Multivit/Ca/Min/Fe/FA 1 TAB TABLET PO SCH (08:44)
[2019-01-06] MEDS: *HR* Rivaroxaban 15 MG TABLET PO SCH (08:44)
[2019-01-06] MEDS: Cholecalciferol (D-3) 1,000 UNIT TABLET PO SCH ×2 (08:44→22:08)
[2019-01-06] MEDS: Aspirin Enteric Coated 81 MG Tablet PO SCH (08:44)
[2019-01-06] MEDS: Diltiazem CD (24hr) 120 MG CAPSULE PO SCH (08:44)
[2019-01-06] MEDS: (Vitamin A [Vitamin A] 10,000 UNIT) PO SCH (08:45)
[2019-01-06] MEDS: (Glucosamine Sulfate Dipot Chlr [Glucosamine] 1,000 MG) PO SCH ×2 (08:45→22:11)
--- NOTE | 2019-01-06 10:12 | Internal Med History&Physical ---
Date of Encounter: 01/06/19 Time of Encounter: 10:10 Assessment and Plan (1) Physical deconditioning Current visit: Yes Status: Acute Patient is admitted to rehab with physical deconditioning. She recently had pneumonia, anemia, acute kidney injury and was at [facility] for several days. She now has slight dyspnea when overexerting, she requires use of a walker, she cannot raise her legs to get into bed because of weakness and edema. She will have PT, OT, RT and psychology evaluations. Overall, she appears be medically stable at the present time. (2) CKD (chronic kidney disease), stage III Current visit: Yes Status: Acute History chronic kidney disease with recent acute kidney injury with creatinine approximately 3. Recent result shows her creatinine improved back to her base line now. We will watch her creatinine as we continue her Lasix required for her edema of lower extremities. (3) Afib Current visit: Yes Status: Chronic Chronic atrial fibrillation and is anticoagulated with Xarelto. She denies any angina or CHF. She appears be rate controlled at approximately 100 during examination Qualifiers: Atrial fibrillation type: chronic Qualified Code(s): I48.2 - Chronic atrial fibrillation (4) HTN (hypertension) Current visit: Yes Status: Chronic Long-standing history of hypertension. However, her blood pressure was 98 systolic this morning. Lasix was held this morning. We will continue to monitor. Qualifiers: Hypertension type: essential hypertension Qualified Code(s): I10 - Essential (primary) hypertension (5) Acquired hypothyroidism Current visit: Yes Status: Chronic History of hypothyroidism and recent increase in her Synthroid to 112 g. (6) S/p nephrectomy Current visit: Yes Status: Chronic Status post left nephrectomy for renal cell carcinoma. (7) S/P cardiac pacemaker procedure Current visit: Yes Status: Chronic History of pacemaker due to long-standing history of tachycardia arrhythmias with flutter and atrial fibrillation. (8) Edema of both lower extremities Current visit: Yes Status: Acute Chronically she has edema of both lower extremities, now it is worse. May be due to multiple etiologies. She had anemia and fluids in rehydration, history congestive heart failure in the past but does not seem to be active currently. Her legs are dependent most of the time. I do not believe she can wear elastic stockings as the legs are huge. Fortunately no skin breakdown. She has Lasix daily. Follow. (9) Metastatic renal cell carcinoma Current visit: Yes Status: Chronic Patient has known renal cell carcinoma and left nephrectomy. Unfortunately, she has metastasis with a PET scan active in the liver as well as the left renal bed. There is report of possible metastasis to her lungs at [facility]. Patient has not had official word of further diagnosis by Dr. Dial since her scans last week. Qualifiers: Laterality: left Qualified Code(s): C64.2 - Malignant neoplasm of left ki dney, except renal pelvis (10) DVT prophylaxis Current visit: Yes Status: Acute She does not need additional DVT prophylaxis as she is anticoagulated with Xarelto. Internal Medicine - H&P: HPI Chief complaint: I am here to get stronger Admitted From: Hospital to Hospital Transfer Plans for Post Hospital Care: Home History of present illness: Ms. 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 She is transferred to [facility] rehabilitation unit with deconditioning having been treated for pneumonia. She had CT scanning for oncology last Friday and felt okay that day. On Friday however she felt ill and weak and short of breath and was found to have bibasilar pneumonia and was transferred to [facility] to be near her oncologist Dr. Dial. She also had a hemoglobin of 6. She was treated with vancomycin, Zosyn and Zithromax. She finished up treatment with Zithromax. She also had acute kidney injury with creatinine in the 3 range which is now almost normalized. Her medications were adjusted. She has residual generalized weakness, she gets short of breath when she overdoes it and has some balance issues. She uses a walker to ambulate. She still has some sputum production which is gone from thick and yellow to less yellow and thinner. She also complains of swelling of her lower extremities and weakness to the point where she cannot pick them up and swing them into the bed. She also sleeps with the head of her bed elevated as she has done chronically. She denies any cardiac type chest pain or palpitations. She denies any GI or symptoms. She does have swelling in the right side of her abdomen and [facility] is well aware of this but not sure what it is from. She lives in a single story dwelling with 2 stairs to get onto the porch and one step into the home. She does have handrails on the steps she has handicap- assisted toilet it is elevated and has arms. Past Med Surg Social Fam HX - Past Medical History Medical history: arthritis, atrial fibrillation, cancer (Remote breast cancer. Left renal cell carcinoma and nephrectomy), hyperlipidemia, hypertension, malignancy (Breast cancer and renal cell carcinoma), renal disease (Chronic kidney disease and recent acute kidney injury), thyroid disease (History of hypothyroidism), other Additional medical history: renal cancer, ascites Psychiatric history: no psych history - Past Surgical History Surgical History: breast surgery, cancer surgery, cataract, hip replacement, orthopedic, other, sinus surgery, other Additional surgical history: EPHRECTOMY -2016,ROTATOR CUFF REPAIR, TUBAL LIGATION, MASTECTOMY, TRIGGER FINGER,TONSILLECTOMY,ABLATION OF HEART 2013,LEFT TOTAL HIP REPLACEMENT, - Social History Smoking Status: Former smoker Smokeless Tobacco Status: No Alcohol use: none Drug use: none Current living situation: Home - Independent Activity Level: Uses cane/walker Recent Out of Country Travel Within the Last 8 Weeks: No Exposure or Possible Exposure to Illness During Travel: No - Family History Mother Living Status: Hx Family Cardiac Disorders: Yes (htn, chf ) Hx Family Neurologic Disorders: Yes (aneurysm) Father Living Status: Hx Family Cardiac Disorders: Yes (cad,mi) Hx Family Cancer: Yes (lymphoma) Internal Medicine - H&P: Meds Atorvastatin [Lipitor] 40 mg PO HS tablet 06/12/15 [Rx] Aspirin Enteric Coated [Aspirin EC] 81 mg PO DAILY 07/18/15 [History] Furosemide [Lasix] 40 mg PO DAILY 09/05/15 [History] Potassium Chloride [Klor-Con Sprinkle] 40 meq PO BID 09/05/15 [History] Calcium Citrate/Vitamin D3 [Calcium Citrate-Vit D3 Tablet] 1 each PO DAILY 03/10/16 [History] Cholecalciferol (Vitamin D3) [Vitamin D3] 2,000 unit PO BID 03/10/16 [History] Glucosamine Sulfate Dipot Chlr [Glucosamine] 1,000 mg PO BID 03/10/16 [History] Metoprolol [Lopressor] 12.5 mg PO BID 04/28/17 [History] Vit C/Vit E/Lutein/Min/Arley-3 [Ocuvite Softgel] 1 each PO DAILY 02/28/17 [History] Oxybutynin Chloride [Ditropan Xl] 10 mg PO DAILY 04/21/17 [History] Rivaroxaban [Xarelto] 15 mg PO DAILY #0 01/16/18 [Rx] Diltiazem CD (24hr) [Cardizem CD] 180 mg PO DAILY 03/20/18 [History] Mv W-Ca/Iron/FA/Lutein/Hrb#179 [Jorge Multivit For Women Caplet] 1 each PO DAILY 07/04/18 [History] Pazopanib HCl [Votrient] 600 mg PO DAILY 09/09/18 [History] Levothyroxine [Synthroid] 112 mcg PO DAILY@0630 12/29/18 [History] Morphine Immed Rel [Morphine Sulfate] 15 mg PO Q12HR 12/29/18 [History] OxyCODONE Immed Rel [Roxicodone 5 MG] 5 mg PO Q6H PRN 12/29/18 [History] Docusate [Colace] 100 mg PO DAILY 01/05/19 [History] Omeprazole [PriLOSEC] 20 mg PO DAILY 01/05/19 [History] Ondansetron ODT [Zofran ODT] 4 mg SL Q8HR PRN 01/05/19 [History] Polyethylene Glycol 3350 [MiraLAX] 17 gm PO DAILY 01/05/19 [History] Vitamin A 10,000 unit PO DAILY 01/05/19 [History] Allergy/AdvReac Type Severity Reaction Status Date / Time No Known Allergies Allergy Verified 09/09/18 17:52 - Constitutional Constitutional: malaise (Generalized weakness and gets a bit short of breath with walking), no anorexia, no chills, no fever(s), no falls - EENT Eyes: no change in vision Ears: decreased hearing (Heart of hearing and wears hearing aid on the right side) Nose, mouth and throat: no neck mass, no sinus pressure, no sore throat - Breasts Breasts: other (Status post mastectomy for cancer) - Cardiovascular Cardiovascular ROS IM: dyspnea on exertion, no chest pain, no diaphoresis, no irregular heart rhythm (But she does have history of atrial fibrillation but does not sense that), no lightheadedness, no palpitations - Respiratory Respiratory: dyspnea, dyspnea on exertion, change in phlegm color (Her sputum production has gone from thick yellow to less yellow and slightly less thick), no cough, no hemoptysis, no pain on inspiration - Gastrointestinal Gastrointestinal: other (She does notice swelling in the right side of her abdomen that has been there for a while and evaluated at [facility].), no abdominal pain, no constipation, no diarrhea - Genitourinary Genitourinary: no dysuria, no urinary incontinence Menstruation: post menopausal - Musculoskeletal Musculoskeletal ROS IM: muscle weakness (Generalized muscle weakness and not back to her usual ADLs yet.), no arthralgias, no joint swelling - Integumentary Integumentary IM: no rash - Neurological Neurological ROS: disequilibrium (She does have some balance problems and uses a walker), weakness (Generalized weakness and uses a walker chronically.), no dizziness, no frequent falls, no tremor(s) - Psychiatric Psychiatric: no depression - Constitutional Vitals: Temp Pulse Resp BP Pulse Ox 97.6 F 90 18 98/60 93 01/06/19 07:29 01/06/19 09:00 01/06/19 07:29 01/06/19 09:00 01/06/19 09:00 General appearance: Present: A&O X 3, morbidly obese, no acute distress - Eye Eye exam: Present: EOMI - Neck Neck exam general surgery: Absent: lymphadenopathy, tenderness, nuchal rigidity - Respiratory Respiratory exam: Present: decreased breath sounds, CTAB. Absent: respiratory distress - Cardiovascular Cardiovascular exam: Present: irregular rhythm, +S1, +S2 (Heart rate is 100) - GI/Abdominal GI/Abdominal exam: Present: soft. Absent: guarding, hepatomegaly, tenderness Additional comments: Right lateral abdomen and flank area shows bulging/fullness that appears to be within the skin and adipose. No obvious organomegaly. No fluid wave. No guarding or rebound or rigidity. No bruising. - Extremities Exam Additional comments: Patient has pitting edema to the knees. No skin breakdown. Heels without breakdown. No redness or signs of infection. - Neurological Exam Neurological exam: Present: alert, CN II-XII intact, oriented X3 Additional comments: She shuffles her feet when going from the chair to the bed. She could not lift her legs up to get into bed. - Psychiatric Psychiatric exam: Present: normal affect
[2019-01-06] MEDS: Furosemide 40 MG TABLET PO SCH (10:20)
--- NOTE | 2019-01-06 14:06 | Psychological Evaluation ---
Date of Encounter: 01/06/19 Time of Encounter: 11:00 History of Present Illness History of present illness: Ms. Jeffries is a 78 year old female with known history of chronic atrial fibrillation, breast cancer, hypertension, pacemaker, coronary artery disease, diabetes mellitus and known history of type II papillary renal cell carcinoma with metastasis to right lobe of liver, left renal bed and reportedly new lesions seen in her lungs. She is transferred to [facility] rehabilitation unit with deconditioning having been treated for pneumonia. Last night her roommate coded and staff is concerned with her reaction and well being thus requested consult. Past Medical History - Psychiatric History Psychiatric history: Reports: no psych history, anxiety Home Medications and Allergies Atorvastatin [Lipitor] 40 mg PO HS tablet 06/12/15 [Rx] Aspirin Enteric Coated [Aspirin EC] 81 mg PO DAILY 07/18/15 [History] Furosemide [Lasix] 40 mg PO DAILY 09/05/15 [History] Potassium Chloride [Klor-Con Sprinkle] 10 meq PO BID 09/05/15 [History] Calcium Citrate/Vitamin D3 [Calcium Citrate-Vit D3 Tablet] 1 each PO DAILY 03/10/16 [History] Cholecalciferol (Vitamin D3) [Vitamin D3] 2,000 unit PO BID 03/10/16 [History] Glucosamine Sulfate Dipot Chlr [Glucosamine] 1,000 mg PO BID 03/10/16 [History] Metoprolol [Lopressor] 100 mg PO BID 02/28/17 [History] Vit C/Vit E/Lutein/Min/[place]-3 [Ocuvite Softgel] 1 each PO DAILY 02/28/17 [History] Oxybutynin Chloride [Ditropan Xl] 10 mg PO DAILY 04/21/17 [History] Rivaroxaban [Xarelto] 15 mg PO DAILY #0 01/16/18 [Rx] Diltiazem CD (24hr) [Cardizem CD] 180 mg PO DAILY 03/20/18 [History] Mv W-Ca/Iron/FA/Lutein/Hrb#179 [Jorge Multivit For Women Caplet] 1 each PO DAILY 07/04/18 [History] Pazopanib HCl [Votrient] 600 mg PO DAILY 09/09/18 [History] Levothyroxine [Synthroid] 112 mcg PO DAILY@0630 12/29/18 [History] Morphine Immed Rel [Morphine Sulfate] 12/29/18 [History] OxyCODONE Immed Rel [Roxicodone 5 MG] 5 mg PO Q6H PRN 12/29/18 [History] Docusate [Colace] 100 mg PO DAILY 01/05/19 [History] Omeprazole [PriLOSEC] 20 mg PO DAILY 01/05/19 [History] Ondansetron ODT [Zofran ODT] 4 mg SL Q8HR PRN 01/05/19 [History] Polyethylene Glycol 3350 [MiraLAX] 17 gm PO DAILY 01/05/19 [History] Vitamin A 10,000 unit PO DAILY 01/05/19 [History] Allergy/AdvReac Type Severity Reaction Status Date / Time No Known Allergies Allergy Verified 09/09/18 17:52 Social History - Social History Social History: Pt years ago after 15year marriage. Had 2 adult sons, 1 at age 14. Currently lives alone and independent other than driving. Quit driving coupe months ago. Has several family members that are supportive and live close. Does hh chores and cares for dog. Has nurse that comes twice a week to assist with hygiene. Enjoys reading, word finding, and crosswords to calm herself. 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 - Tobacco Use Smoking Status: Former smoker - Alcohol Use Alcohol Use: none - Drug Use Drug Use: none Cognitive/Emotional Assessment - Cognitive Ability Abstract Thinking Ability: No Deficits Noted Attention Span Ability: Capable of Focused Attention Language Function Ability: No Deficits Noted Verbal Communication Ability: Conversational Style Level of Alertness: Alert Memory Description: Recent Intact, Chcf Intact (Ox3) Orientation: Person, Place, Time, Name, Age, Date of Ability to Follow Directions: Good Speech Pattern: Normal rate Thought Process: Intact - Emotional Status Mood Description: Anxious Affect Description: Euthymic/stable Coping Ability: Verbalizes positive coping skills Additional Findings: Stated she is a worrier and realizes she has multiple medical issues . Stated "not going to get any better, treatment is to slow it down". She did report her pain is controlled with the medication. She further stated' Like to keep my emotions at bay". Assessment & Plan - Diagnosis (1) Adjustment disorder with anxiety - Prognosis Prognosis: Good - Treatment Plan Treatment Frequency: Will follow as needed . Expressed adequate coping strategies Procedures - Participants Therapy Participant: Patient - Session Time Session Start Time: 11:00 Session Stop Time: 11:30
[2019-01-07] MEDS: *HR* Morphine Immed Rel 30 MG TABLET PO SCH ×2 (05:30→17:47)
[2019-01-07 05:44] LABS: Basophils # 0.1 K/mcL (0.0-0.2); Basophils % 0.5 %; Eosinophils # 0.2 K/mcL (0.0-0.6); Eosinophils % 2.1 %; Hematocrit 24.6 % (35.3-44.9); Hemoglobin 7.2 g/dL (11.5-15.4); Immature Granulocytes % 0.5 % (0-4); Lymphocytes # 1.8 K/mcL (0.6-4.6); Lymphocytes % 17.4 %; Mean Corpuscular HGB Conc 29.3 g/dL (31.6-35.5); Mean Corpuscular Hemoglobin 27.2 pg (28.0-33.3); Mean Corpuscular Volume 92.8 fL (83.0-100.0); Monocytes # 1.2 K/mcL (0.0-1.3); Monocytes % 11.8 %; Platelet Count 266 K/mcL (140-400); Red Blood Count 2.65 M/mcL (3.82-4.97); Red Cell Distribution Width 19.3 % (11.5-14.5); Segmented Neutrophils % 67.7 %
[2019-01-07 06:01] LABS: Calcium 8.7 mg/dL (8.6-10.3); Potassium 4.3 mEq/L (3.5-5.1)
--- NOTE | 2019-01-07 08:25 | Internal Med Progress Note ---
Date of Encounter: 01/07/19 Time of Encounter: 08:24 - Assessment and plan (1) CKD (chronic kidney disease), stage III Current Visit: Yes Status: Acute Assessment and plan: baseline currently will repeat bmp in am (2) Afib Current Visit: Yes Status: Chronic Assessment and plan: she is getting tachy but only able to be on the diltiazem due to hyptension. her metoprolol has been held. she is on tele with tachy. she is anticoag with xarelto Qualifiers: Atrial fibrillation type: chronic Qualified Code(s): I48.2 - Chronic atrial fibrillation (3) Obesity Current Visit: No Status: Chronic Qualifiers: Obesity type: due to excess calories Obesity classification: unspecified obesity classification Serious obesity comorbidity presence: with serious comorbidity Qualified Code(s): E66.09 - Other obesity due to excess calories (4) Anemia Current Visit: No Status: Acute Assessment and plan: her hg is low today. her bp is 90 sbp, she is tachy. holding her metoprolol and lasix due to these symptoms. discussed with her and her sone about a blood transfusion. she has had in the past. discussed the risk of hiv and hepatitis and infectious disease. she is 7.2 on her hemoglobin but she is symptomatic.. discussed indications for transfusion are <7 or 7 with symptoms. will proceed with 1 unit prbc order entered Qualifiers: Anemia type: unspecified type Qualified Code(s): D64.9 - Anemia, unspecified (5) HTN (hypertension) Current Visit: Yes Status: Chronic Assessment and plan: she has been hypotensive. will transfuse today. her metoprolol and her lasix have been held due to the hypotension Qualifiers: Hypertension type: essential hypertension Qualified Code(s): I10 - Ess ential (primary) hypertension (6) Lumbar degenerative disc disease Current Visit: No Status: Chronic Assessment and plan: will continue her current medication it is stable for now (7) DVT prophylaxis Current Visit: Yes Status: Acute Assessment and plan: she is on xarelto will continue this (8) S/p nephrectomy Current Visit: Yes Status: Chronic (9) Physical deconditioning Current Visit: Yes Status: Acute Assessment and plan: she is here for rehab pt ot,rt (10) Metastatic renal cell carcinoma Current Visit: Yes Status: Chronic Qualifiers: Laterality: left Qualified Code(s): C64.2 - Malignant neoplasm of left valentino turpin, except renal pelvis (11) Edema of both lower extremities Current Visit: Yes Status: Acute Assessment and plan: lasix is ordered but she is not able to tolerate due to her hypotension - Subjective Interval history: she is in the dining room today. got there ok. she is tired but doing ok. pain ok. she is willing to participate in therapy. she does not feel palp, cp or sob. she does not feel like she might fall. no n.v eatin ok - Constitutional Vitals: Temp Pulse Resp BP Pulse Ox 98.3 F 115 16 96/62 98 01/07/19 06:39 01/07/19 06:39 01/07/19 06:39 01/07/19 06:39 01/07/19 06:39 General appearance: Present: A&O X 3, morbidly obese, no acute distress - Head Head exam: Present: atraumatic, normocephalic - Neck Neck exam general surgery: Present: trachea midline - Respiratory Respiratory exam: Present: CTAB - Cardiovascular Cardiovascular exam: Present: irregular rhythm, tachycardia - GI/Abdominal GI/Abdominal exam: Present: normal bowel sounds, soft, no peritoneal signs. Absent: distended, mass, tenderness - Extremities Exam Extremities exam: Present: pedal edema Internal Medicine: Result - Labs CBC & Chem 7: 01/07/19 05:25 01/07/19 05:25 Labs: Short CBC 01/07/19 Range/Units 05:25 WBC 10.3 (4.3-11.1) K/mcL Hgb 7.2 L (11.5-15.4) g/dL Hct 24.6 L (35.3-44.9) % Plt Count 266 (140-400) K/mcL Neutrophils # 7.0 (1.6-8.9) K/mcL BMP 01/07/19 05:25 Sodium 140 Potassium 4.3 Chloride 108 H Carbon Dioxide 25 BUN 27 H Creatinine 2.89 H Glucose 115 H Calcium 8.7 Consult Discharge Plan - Plan Referrals: Denny Bergeron MD [Primary Care Provider] -
[2019-01-07] MEDS: Furosemide 40 MG TABLET PO SCH ×2 (08:27→17:46)
[2019-01-07] MEDS: (Glucosamine Sulfate Dipot Chlr [Glucosamine] 1,000 MG) PO SCH ×2 (08:35→21:32)
[2019-01-07] MEDS: (Vitamin A [Vitamin A] 10,000 UNIT) PO SCH (08:35)
[2019-01-07] MEDS: Diltiazem CD (24hr) 120 MG CAPSULE PO SCH (08:55)
[2019-01-07] MEDS: Aspirin Enteric Coated 81 MG Tablet PO SCH (08:55)
[2019-01-07] MEDS: Cholecalciferol (D-3) 1,000 UNIT TABLET PO SCH ×2 (08:55→21:30)
[2019-01-07] MEDS: Multivit/Ca/Min/Fe/FA 1 TAB TABLET PO SCH (08:55)
[2019-01-07] MEDS: *HR* Rivaroxaban 15 MG TABLET PO SCH (08:55)
[2019-01-08] MEDS: *HR* Morphine Immed Rel 30 MG TABLET PO SCH ×2 (05:16→16:41)
[2019-01-08 05:39] LABS: Basophils # 0.1 K/mcL (0.0-0.2); Basophils % 0.5 %; Eosinophils # 0.2 K/mcL (0.0-0.6); Eosinophils % 2.6 %; Hematocrit 25.4 % (35.3-44.9); Hemoglobin 7.7 g/dL (11.5-15.4); Immature Granulocytes % 0.5 % (0-4); Lymphocytes # 1.5 K/mcL (0.6-4.6); Lymphocytes % 15.7 %; Mean Corpuscular HGB Conc 30.3 g/dL (31.6-35.5); Mean Corpuscular Hemoglobin 27.6 pg (28.0-33.3); Mean Platelet Volume 8.4 fL (9.4-12.4); Monocytes # 1.1 K/mcL (0.0-1.3); Monocytes % 12.3 %; Neutrophils # 6.4 K/mcL (1.6-8.9); Platelet Count 257 K/mcL (140-400); Red Blood Count 2.79 M/mcL (3.82-4.97); Red Cell Distribution Width 18.9 % (11.5-14.5); Segmented Neutrophils % 68.4 %
[2019-01-08 06:05] LABS: Calcium 8.6 mg/dL (8.6-10.3)
[2019-01-08] MEDS: *HR* Rivaroxaban 15 MG TABLET PO SCH (08:35)
[2019-01-08] MEDS: Aspirin Enteric Coated 81 MG Tablet PO SCH (08:35)
[2019-01-08] MEDS: Diltiazem CD (24hr) 120 MG CAPSULE PO SCH (08:35)
[2019-01-08] MEDS: Cholecalciferol (D-3) 1,000 UNIT TABLET PO SCH ×2 (08:35→21:58)
[2019-01-08] MEDS: Multivit/Ca/Min/Fe/FA 1 TAB TABLET PO SCH (08:35)
[2019-01-08] MEDS: (Glucosamine Sulfate Dipot Chlr [Glucosamine] 1,000 MG) PO SCH ×2 (08:36→21:59)
[2019-01-08] MEDS: (Vitamin A [Vitamin A] 10,000 UNIT) PO SCH (08:36)
--- NOTE | 2019-01-08 12:18 | Internal Med Progress Note ---
Date of Encounter: 01/08/19 Time of Encounter: 10:15 - Assessment and plan (1) Physical deconditioning Current Visit: Yes Status: Acute Assessment and plan: she is here for rehab pt ot,rt (2) CKD (chronic kidney disease), stage III Current Visit: Yes Status: Acute Assessment and plan: baseline currently (3) Afib Current Visit: Yes Status: Chronic Assessment and plan: she is getting tachy but only able to be on the diltiazem due to hyptension. her metoprolol has been held. she is on tele with tachy. she is anticoag with xarelto Qualifiers: Atrial fibrillation type: chronic Qualified Code(s): I48.2 - Chronic atrial fibrillation (4) Obesity Current Visit: No Status: Chronic Qualifiers: Obesity type: due to excess calories Obesity classification: unspecified obesity classification Serious obesity comorbidity presence: with serious comorbidity Qualified Code(s): E66.09 - Other obesity due to excess calories (5) Anemia Current Visit: No Status: Acute Assessment and plan: she did get 1 unit transfused yesterday. she feels better today increased energy. hg 7.7 this am will continue to follow Qualifiers: Anemia type: unspecified type Qualified Code(s): D64.9 - Anemia, unspecified (6) HTN (hypertension) Current Visit: Yes Status: Chronic Assessment and plan: she has been hypotensive. her metoprolol and her lasix have been held due to the hypotension, it is low but stable Qualifiers: Hypertension type: essential hypertension Qualified Code(s): I10 - Essential (primary) hypertension (7) Lumbar degenerative disc disease Current Visit: No Status: Chronic Assessment and plan: will continue her current medication it is stable for now (8) DVT prophylaxis Current Visit: Yes Status: Acute Assessment and plan: she is on xarelto will continue this (9) S/p nephrectomy Current Visit: Yes Status: Chronic (10) Metastatic renal cell carcinoma Current Visit: Yes Status: Chronic Qualifiers: Laterality: left Qualified Code(s): C64.2 - Malignant neoplasm of left kidney, except renal pelvis (11) Edema of both lower extremities Current Visit: Yes Status: Acute Assessment and plan: lasix is ordered but she is not able to tolerate due to her hypotension - Subjective Interval history: she just got out of the shower. it did wear her out. she was sob after walking back but did recover with lynn rest. she feels better after the shower. she is tired but doing ok. pain ok. she is willing to participate in therapy. she does not feel palp, cp or sob. she does not feel like she might fall. no n.v eatin ok. she feels like she has perked up after the transfusio - Constitutional Vitals: Temp Pulse Resp BP Pulse Ox 98.4 F 117 16 95/62 99 01/08/19 06:26 01/08/19 06:26 01/08/19 06:26 01/08/19 06:26 01/08/19 06:26 General appearance: Present: A&O X 3, morbidly obese, no acute distress - Head Head exam: Present: atraumatic, normocephalic - Neck Neck exam general surgery: Present: trachea midline. Absent: lymphadenopathy - Respiratory Respiratory exam: Present: CTAB, prolonged expiratory phase - Cardiovascular Cardiovascular exam: Present: irregular rhythm - GI/Abdominal GI/Abdominal exam: Present: normal bowel sounds, soft, no peritoneal signs. Abs ent: distended, guarding, rebound, tenderness - Extremities Exam Extremities exam: Present: pedal edema (same as yesterday) - Skin Skin exam: Present: dry Internal Medicine: Result - Labs CBC & Chem 7: 01/08/19 05:05 01/08/19 05:05 Labs: Short CBC 01/08/19 Range/Units 05:05 WBC 9.3 (4.3-11.1) K/mcL Hgb 7.7 L (11.5-15.4) g/dL Hct 25.4 L (35.3-44.9) % Plt Count 257 (140-400) K/mcL Neutrophils # 6.4 (1.6-8.9) K/mcL BMP 01/08/19 05:05 Sodium 139 Potassium 5.0 Chloride 109 H Carbon Dioxide 24 BUN 32 H Creatinine 2.80 H Glucose 110 H Calcium 8.6 - Impressions Impressions Chest X-Ray 01/07/19 09:00 IMPRESSION: Vascular congestion. Small bilateral pleural effusions, greater on the left. Left basilar atelectasis, versus asymmetrical edema or pneumonia. D/ / Shalom Alexandre MD / Shalom Alexandre MD Interpreting Provider: Shalom Alexandre MD Consult Discharge Plan - Plan Referrals: Denny Bergeron MD [Primary Care Provider] -
[2019-01-09] MEDS: *HR* Morphine Immed Rel 30 MG TABLET PO SCH ×2 (05:13→17:36)
[2019-01-09] MEDS ORDERED: Apixaban 2.5 MG TABLET PO SCH (09:00)
[2019-01-09] MEDS: Diltiazem CD (24hr) 120 MG CAPSULE PO SCH (10:08)
[2019-01-09] MEDS: Aspirin Enteric Coated 81 MG Tablet PO SCH (10:08)
[2019-01-09] MEDS: Cholecalciferol (D-3) 1,000 UNIT TABLET PO SCH ×2 (10:08→21:20)
[2019-01-09] MEDS: Multivit/Ca/Min/Fe/FA 1 TAB TABLET PO SCH (10:09)
[2019-01-09] MEDS: (Vitamin A [Vitamin A] 10,000 UNIT) PO SCH (10:09)
[2019-01-09] MEDS: (Glucosamine Sulfate Dipot Chlr [Glucosamine] 1,000 MG) PO SCH ×2 (10:10→21:20)
[2019-01-09] MEDS: Furosemide 40 MG TABLET PO SCH (10:10)
--- NOTE | 2019-01-09 10:55 | Internal Med Progress Note ---
Date of Encounter: 01/09/19 Time of Encounter: 10:29 - Assessment and plan (1) Physical deconditioning Current Visit: Yes Status: Acute Assessment and plan: she is here for rehab pt ot,rt (2) CKD (chronic kidney disease), stage III Current Visit: Yes Status: Acute Assessment and plan: baseline currently (3) Afib Current Visit: Yes Status: Chronic Assessment and plan: she is getting tachy but only able to be on the diltiazem due to hyptension. her metoprolol has been held. she is on tele with tachy. she was anticoag with xarelto,but changed to eliquis due to renal function, but she would rather coumadin orders written Qualifiers: Atrial fibrillation type: chronic Qualified Code(s): I48.2 - Chronic atrial fibrillation (4) Obesity Current Visit: No Status: Chronic Qualifiers: Obesity type: due to excess calories Obesity classification: unspecified obesity classification Serious obesity comorbidity presence: with serious comorbidity Qualified Code(s): E66.09 - Other obesity due to excess calories (5) Anemia Current Visit: No Status: Acute Assessment and plan: she did get 1 unit transfused she feels better today increased energy. hg 7.7 will continue to follow Qualifiers: Anemia type: unspecified type Qualified Code(s): D64.9 - Anemia, unspecified (6) HTN (hypertension) Current Visit: Yes Status: Chronic Qualifiers: Hypertension type: essential hypertension Qualified Code(s): I10 - Essential (primary) hypertension (7) Lumbar degenerative disc disease Current Visit: No Status: Chronic (8) DVT prophylaxis Current Visit: Yes Status: Acute (9) S/p nephrectomy Current Visit: Yes Status: Chronic (10) Metastatic renal cell carcinoma Current Visit: Yes Status: Chronic Qualifiers: Laterality: left Qualified Code(s): C64.2 - Malignant neoplasm of left kidney, except renal pelvis (11) Edema of both lower extremities Current Visit: Yes Status: Acute - Subjective Interval history: she feels better. did get sob but recovers quikly, no cp, no dizzy she is willing to participate in therapy. she does not feel palp, cp or sob. she does not feel like she might fall. no n.v eating ok. discussed xaaralto with her renal function and bleeding vs eliquis, vs coumadin. she would like to do the coumadin again - Constitutional Vitals: Temp Pulse Resp BP Pulse Ox 98.2 F 77 16 96/63 98 01/09/19 07:11 01/09/19 07:11 01/09/19 07:11 01/09/19 07:11 01/09/19 07:11 General appearance: Present: A&O X 3, morbidly obese, no acute distress - Head Head exam: Present: atraumatic, normocephalic - Neck Neck exam general surgery: Present: supple, trachea midline - Respiratory Respiratory exam: Present: CTAB - Cardiovascular Cardiovascular exam: Present: irregular rhythm - GI/Abdominal GI/Abdominal exam: Present: normal bowel sounds, soft (but induration of most of the right flank), no peritoneal signs. Absent: guarding, tenderness - Extremities Exam Extremities exam: Present: normal capillary refill, pedal edema, warm. Absent: mottling - Skin Skin exam: Present: dry, warm. Absent: rash Internal Medicine: Result - Labs CBC & Chem 7: 01/08/19 05:05 01/08/19 05:05 Consult Discharge Plan - Plan Referrals: Denny Bergeron MD [Primary Care Provider] -
[2019-01-09] MEDS: *HR* Warfarin 2 MG TABLET PO SCH (18:36)
[2019-01-10] MEDS: *HR* Morphine Immed Rel 30 MG TABLET PO SCH ×2 (05:30→17:59)
[2019-01-10 05:33] LABS: Basophils % 0.5 %; Eosinophils # 0.3 K/mcL (0.0-0.6); Hematocrit 25.6 % (35.3-44.9); Hemoglobin 7.6 g/dL (11.5-15.4); Immature Granulocytes % 0.6 % (0-4); Lymphocytes # 1.3 K/mcL (0.6-4.6); Lymphocytes % 14.7 %; Mean Corpuscular HGB Conc 29.7 g/dL (31.6-35.5); Mean Corpuscular Hemoglobin 27.3 pg (28.0-33.3); Mean Corpuscular Volume 92.1 fL (83.0-100.0); Mean Platelet Volume 8.1 fL (9.4-12.4); Monocytes # 1.2 K/mcL (0.0-1.3); Monocytes % 13.6 %; Neutrophils # 5.9 K/mcL (1.6-8.9); Platelet Count 226 K/mcL (140-400); Red Blood Count 2.78 M/mcL (3.82-4.97); Red Cell Distribution Width 19.4 % (11.5-14.5); Segmented Neutrophils % 67.6 %
[2019-01-10 05:37] LABS: INR 1.4; Prothrombin Time 15.3 Seconds (9.4-12.1)
[2019-01-10 05:50] LABS: Calcium 8.5 mg/dL (8.6-10.3); Potassium 5.1 mEq/L (3.5-5.1)
[2019-01-10] MEDS: Multivit/Ca/Min/Fe/FA 1 TAB TABLET PO SCH (09:28)
[2019-01-10] MEDS: Cholecalciferol (D-3) 1,000 UNIT TABLET PO SCH ×2 (09:28→21:14)
[2019-01-10] MEDS: Aspirin Enteric Coated 81 MG Tablet PO SCH (09:28)
[2019-01-10] MEDS: Diltiazem CD (24hr) 120 MG CAPSULE PO SCH (09:28)
[2019-01-10] MEDS: Furosemide 40 MG TABLET PO SCH (09:29)
[2019-01-10] MEDS: (Vitamin A [Vitamin A] 10,000 UNIT) PO SCH (09:29)
[2019-01-10] MEDS: (Glucosamine Sulfate Dipot Chlr [Glucosamine] 1,000 MG) PO SCH ×2 (09:29→21:14)
--- NOTE | 2019-01-10 10:15 | Internal Med Progress Note ---
Date of Encounter: 01/11/19 Time of Encounter: 10:13 - Assessment and plan (1) Physical deconditioning Current Visit: Yes Status: Acute Assessment and plan: she is here for rehab pt ot,rt (2) CKD (chronic kidney disease), stage III Current Visit: Yes Status: Acute Assessment and plan: increased creat today. holding lasix (3) Afib Current Visit: Yes Status: Chronic Assessment and plan: she is getting tachy but only able to be on the diltiazem due to hyptension. her metoprolol has been held. . she was anticoag with xarelto,but changed to eliquis due to renal function, but she would rather coumadin orders written, on coumadin now Qualifiers: Atrial fibrillation type: chronic Qualified Code(s): I48.2 - Chronic atrial fibrillation (4) Obesity Current Visit: No Status: Chronic Qualifiers: Obesity type: due to excess calories Obesity classification: unspecified obesity classification Serious obesity comorbidity presence: with serious comorbidity Qualified Code(s): E66.09 - Other obesity due to excess calories (5) Anemia Current Visit: Yes Status: Acute Assessment and plan: she did get 1 unit transfused she feels better today increased energy. hg 7.6 will continue to follow Qualifiers: Anemia type: unspecified type Qualified Code(s): D64.9 - Anemia, unspecified (6) HTN (hypertension) Current Visit: Yes Status: Chronic Assessment and plan: she has been hypotensive. her metoprolol and her lasix have been held due to the hypotension, it is low but stable Qualifiers: Hypertension type: essential hypertension Qualified Code(s): I10 - Essential (primary) hypertension (7) Lumbar degenerative disc disease Current Visit: No Status: Chronic Assessment and plan: will continue her current medication it is stable for now (8) DVT prophylaxis Current Visit: Yes Status: Acute Assessment and plan: shei snow on coumadin inr1.4 and ambulation (9) S/p nephrectomy Current Visit: Yes Status: Chronic (10) Metastatic renal cell carcinoma Current Visit: Yes Status: Chronic Qualifiers: Laterality: left Qualified Code(s): C64.2 - Malignant neoplasm of left kidney, except renal pelvis (11) Edema of both lower extremities Current Visit: Yes Status: Acute Assessment and plan: lasix is ordered but she is not able to tolerate due to her hypotension, will look into wrapping them with wound care mon - Subjective Interval history: she feels better. did get sob but recovers quikly, no cp, no dizzy she is willing to participate in therapy. she does not feel palp, cp or sob. she does not feel like she might fall. no n.v eating ok. started coumadin. - Constitutional Vitals: Temp Pulse Resp BP Pulse Ox 98.6 F 88 16 91/60 96 01/10/19 07:26 01/10/19 07:26 01/10/19 07:26 01/10/19 07:26 01/10/19 07:26 General appearance: Present: A&O X 3, morbidly obese, no acute distress - Head Head exam: Present: atraumatic, normocephalic - Neck Neck exam general surgery: Present: tenderness, supple, trachea midline - Respiratory Respiratory exam: Present: CTAB. Absent: accessory muscle use - Cardiovascular Cardiovascular exam: Present: RRR. Absent: systolic murmur - GI/Abdominal GI/Abdominal exam: Present: firm (right lower abd to flank), normal bowel sounds, soft, no peritoneal signs. Absent: guarding, tenderness - Extremities Exam Extremities exam: Present: pedal edema. Absent: mottling - Skin Skin exam: Present: dry, warm. Absent: rash Internal Medicine: Result - Labs CBC & Chem 7: 01/11/19 05:35 01/11/19 05:35 Labs: Short CBC 01/10/19 Range/Units 04:24 WBC 8.8 (4.3-11.1) K/mcL Hgb 7.6 L (11.5-15.4) g/dL Hct 25.6 L (35.3-44.9) % Plt Count 226 (140-400) K/mcL Neutrophils # 5.9 (1.6-8.9) K/mcL BMP 01/10/19 04:24 Sodium 136 Potassium 5.1 Chloride 107 Carbon Dioxide 23 BUN 36 H Creatinine 3.18 H Glucose 108 H Calcium 8.5 L - ABG Interpretation ABG results: PT/INR, D-dimer PT 15.3 Seconds (9.4-12.1) H 01/10/19 04:24 Consult Discharge Plan - Plan Referrals: Denny Bergeron MD [Primary Care Provider] -
[2019-01-10] MEDS: *HR* Warfarin 2 MG TABLET PO SCH (18:00)
[2019-01-11 05:48] LABS: Basophils % 0.5 %; Eosinophils # 0.3 K/mcL (0.0-0.6); Eosinophils % 3.4 %; Hematocrit 25.1 % (35.3-44.9); Hemoglobin 7.6 g/dL (11.5-15.4); Immature Granulocytes % 0.3 % (0-4); Lymphocytes # 1.1 K/mcL (0.6-4.6); Lymphocytes % 14.9 %; Mean Corpuscular HGB Conc 30.3 g/dL (31.6-35.5); Mean Corpuscular Hemoglobin 27.4 pg (28.0-33.3); Mean Corpuscular Volume 90.6 fL (83.0-100.0); Mean Platelet Volume 8.4 fL (9.4-12.4); Monocytes % 13.9 %; Platelet Count 235 K/mcL (140-400); Red Blood Count 2.77 M/mcL (3.82-4.97); Red Cell Distribution Width 19.2 % (11.5-14.5)
[2019-01-11] MEDS: *HR* Morphine Immed Rel 30 MG TABLET PO SCH ×2 (05:48→17:28)
[2019-01-11 05:51] LABS: INR 1.2; Prothrombin Time 13.6 Seconds (9.4-12.1)
[2019-01-11 06:02] LABS: Calcium 8.2 mg/dL (8.6-10.3); Potassium 4.9 mEq/L (3.5-5.1)
--- NOTE | 2019-01-11 07:24 | Internal Med Progress Note ---
Date of Encounter: 01/11/19 Time of Encounter: 07:21 - Assessment and plan (1) Physical deconditioning Current Visit: Yes Status: Acute Assessment and plan: Patient is continuing her therapies with the plan to regain her ADLs safe enough to be discharged to home. She is having significant edema in lower extremities and will ask patient therapy to wrap her legs. (2) CKD (chronic kidney disease), stage III Current Visit: Yes Status: Acute Assessment and plan: Chronic kidney disease with acute kidney injury and stabilize/slightly improved today. Lasix was held yesterday. Will need nephrology consultation when she is available to do so. (3) Afib Current Visit: Yes Status: Chronic Assessment and plan: Continues with atrial fibrillation. Her rate is about 100 this morning. No angina. She does have a left pleural effusion, but she was recently hospitalized at [facility] for bibasilar pneumonia. She had CT scan done they are but I do not have films for comparison. Does not seem to be compromised respiratory townsend with this. She does have follow-up with [facility] oncology on Friday. Qualifiers: Atrial fibrillation type: chronic Qualified Code(s): I48.2 - Chronic atrial fibrillation (4) HTN (hypertension) Current Visit: Yes Status: Chronic Assessment and plan: Long-standing history of hypertension, recently she has had hypotension and some meds have been held. This morning's blood pressure is not yet documented. Qualifiers: Hypertension type: essential hypertension Qualified Code(s): I10 - Essential (primary) hypertension (5) Acquired hypothyroidism Current Visit: Yes Status: Chronic (6) S/p nephrectomy Current Visit: Yes Status: Chronic (7) S/P cardiac pacemaker procedure Current Visit: Yes Status: Chronic (8) Edema of both lower extremities Current Visit: Yes Status: Acute Assessment and plan: We will arrange for occupational therapy to evaluate and wrap her lower extremities. More elevation of the foot of her bed at nighttime. Lasix was held yesterday because of her hypotension. Her creatinine elevated to 3.14. (9) Metastatic renal cell carcinoma Current Visit: Yes Status: Chronic Assessment and plan: She has follow-up with her cancer doctor on Friday planned. Qualifiers: Laterality: left Qualified Code(s): C64.2 - Malignant neoplasm of left kidney, except renal pelvis (10) DVT prophylaxis Current Visit: Yes Status: Acute Assessment and plan: Patient was on Xarelto, now on Coumadin because of her acute kidney injury. Dosing adjusted. (11) Anemia Current Visit: Yes Status: Acute Assessment and plan: Hemoglobin is stable at 7.6 after 1 unit transfused. We will continue to follow. No active bleeding noted. Qualifiers: Anemia type: unspecified type Qualified Code(s): D64.9 - Anemia, unspecified - Subjective Interval history: Patient denies any cardiac type chest pain, palpitation, dyspnea. Her bowels have not moved today but they did yesterday. She denies any bowel or bladder problems at this time. She has been swelling in her lower extremities and nurse reports that they look better this morning than it did last night without any open areas. Lasix was held yesterday because of low blood pressure. - Constitutional Vitals: Temp Pulse Resp BP Pulse Ox 98.1 F 101 15 113/76 95 01/10/19 19:30 01/10/19 19:30 01/10/19 19:30 01/10/19 19:30 01/10/19 19:30 General appearance: Present: A&O X 3, morbidly obese, no acute distress - Respiratory Additional comments: Lungs are clear except for noted decreased breath sounds in the left base. No crackles or wheezes heard. - Cardiovascular Cardiovascular exam: Present: irregular rhythm, +S1, +S2 Additional comments: Heart rate count is 100 - GI/Abdominal GI/Abdominal exam: Present: soft. Absent: tenderness Additional comments: Has continued induration and swelling in the right lateral abdomen and flank area compared to the left but this is chronic. It is nontender and there is no bruising. There is no fluctuance. - Extremities Exam Additional comments: Pitting edema bilaterally to the knees. No skin breakdown. No heel breakdown. Skin is getting thin and shiny. There is no calf tenderness. No warmth or redness or linear streaks. Internal Medicine: Result - Labs CBC & Chem 7: 01/11/19 05:35 01/11/19 05:35 Labs: Short CBC 01/11/19 Range/Units 05:35 WBC 7.4 (4.3-11.1) K/mcL Hgb 7.6 L (11.5-15.4) g/dL Hct 25.1 L (35.3-44.9) % Plt Count 235 (140-400) K/mcL Neutrophils # 5.0 (1.6-8.9) K/mcL BMP 01/11/19 05:35 Sodium 138 Potassium 4.9 Chloride 106 Carbon Dioxide 22 L BUN 38 H Creatinine 3.14 H Glucose 101 Calcium 8.2 L Hemoglobin is stable 7.6. Creatinine slightly improved/stable. INR 1.2, previously was 1.4 - ABG Interpretation ABG results: PT/INR, D-dimer PT 13.6 Seconds (9.4-12.1) H 01/11/19 05:35 - Diagnostic Studies Chest x-ray Additional comments: Chest x-ray done last Friday as new baseline following her hospitalization for pneumonia shows bilateral pleural effusion, significantly more on the left. We do not have films from [facility]. Consult Discharge Plan - Plan Referrals: Denny Bergeron MD [Primary Care Provider] -
[2019-01-11] MEDS: Aspirin Enteric Coated 81 MG Tablet PO SCH (10:20)
[2019-01-11] MEDS: Diltiazem CD (24hr) 120 MG CAPSULE PO SCH (10:20)
[2019-01-11] MEDS: Furosemide 40 MG TABLET PO SCH ×2 (10:21→15:05)
[2019-01-11] MEDS: Multivit/Ca/Min/Fe/FA 1 TAB TABLET PO SCH (10:21)
[2019-01-11] MEDS: (Vitamin A [Vitamin A] 10,000 UNIT) PO SCH (10:21)
[2019-01-11] MEDS: (Glucosamine Sulfate Dipot Chlr [Glucosamine] 1,000 MG) PO SCH ×2 (10:21→20:06)
[2019-01-11] MEDS: Cholecalciferol (D-3) 1,000 UNIT TABLET PO SCH ×2 (10:21→20:03)
[2019-01-11] MEDS ORDERED: *HR* Warfarin 4 MG TABLET PO SCH (18:00)
[2019-01-12] MEDS: *HR* Morphine Immed Rel 30 MG TABLET PO SCH (05:18)
[2019-01-12 05:31] LABS: INR 1.2; Prothrombin Time 13.5 Seconds (9.4-12.1)
[2019-01-12 05:43] LABS: Calcium 8.4 mg/dL (8.6-10.3); Potassium 4.9 mEq/L (3.5-5.1)
[2019-01-12] MEDS: (Glucosamine Sulfate Dipot Chlr [Glucosamine] 1,000 MG) PO SCH (08:28)
[2019-01-12] MEDS: (Vitamin A [Vitamin A] 10,000 UNIT) PO SCH (08:29)
[2019-01-12] MEDS: Cholecalciferol (D-3) 1,000 UNIT TABLET PO SCH (08:41)
[2019-01-12] MEDS: Multivit/Ca/Min/Fe/FA 1 TAB TABLET PO SCH (08:41)
[2019-01-12] MEDS: Aspirin Enteric Coated 81 MG Tablet PO SCH (08:41)
[2019-01-12] MEDS: Diltiazem CD (24hr) 120 MG CAPSULE PO SCH (08:49)
[2019-01-12 12:06] VITALS: BP 100/57
--- NOTE | 2019-01-12 13:19 | Discharge Summary ---
- NOTES TO OUTPATIENT PROVIDER Notes to Outpatient Provider: 1. Patient has been at [facility] Rehab unit for deconditioning following treatment for pneumonia and acute kidney injury at [facility]. She is functionally doing well from a therapy point of view, however her creatinine is now up to 3.29. I spoke with Dr. Thompson and he recommends t ransfer to [place] and initiation of dialysis at this time. Date of Encounter: 01/12/19 Time of Encounter: 13:16 - Discharge Diagnosis (1) Acute kidney injury superimposed on chronic kidney disease Priority: Primary Status: Acute Comments: Patient has history of chronic kidney disease in addition to other chronic medical problems. She had acute kidney injury during her hospitalization at [facility] for pneumonia with a creatinine about 3.0 range. She was transferred to [facility] rehabilitation unit for deconditioning and her creatinine had improved to 2.89. However, the past few days it has creeped upward and today is 3.29. This is despite decreasing her Lasix use and trying to avoid nephrotoxins. I have been in touch with Dr. Thompson, residential framing carpenter, and he recommends transfer to [place] for dialysis. (2) Physical deconditioning Priority: Secondary Status: Acute Comments: Patient was treated at [facility] for bilateral pneumonia, anemia and acute kidney injury and was transferred to [facility] Rehabilitation unit for therapies for deconditioning prior to planned discharge to home. She has improved her ADLs and from a therapy point of view she is near readiness to be discharged to home. However she has had worsening kidney failure and will be transferred to [place] regarding renal failure. (3) CKD (chronic kidney disease), stage III Priority: Secondary Status: Chronic (4) Afib Priority: Secondary Status: Chronic Comments: Patient has long-standing history of atrial flutter and atrial fibrillation. She remains anticoagulated. She previously was on Xarelto but was switched to Coumadin as her creatinine had worsened. Her INR is still subtherapeutic at 1.4. Her heart rate is typically about 100. She is having no angina or CHF symptoms. She is on Cardizem and metoprolol. She has had some doses held in the past few days due to hypotension with blood pressure in the 90s. Qualifiers: Atrial fibrillation type: chronic Qualified Code(s): I48.2 - Chronic atrial fibrillation (5) HTN (hypertension) Priority: Secondary Status: Chronic Comments: Patient is a history long-standing hypertension. Lately she has had troubles with hypotension with blood pressures commonly in the 90s to 100 systolic range likely due to her multiple medications, her dysrhythmia medications and anemia today her systolic blood pressure has been in the 100 range. Qualifiers: Hypertension type: essential hypertension Qualified Code(s): I10 - Essential (primary) hypertension (6) Acquired hypothyroidism Priority: Secondary Status: Chronic (7) S/p nephrectomy Priority: Secondary Status: Chronic Comments: She is status post nephrectomy for renal cell carcinoma. (8) S/P cardiac pacemaker procedure Priority: Secondary Status: Chronic (9) Edema of both lower extremities Priority: Secondary Status: Acute Comments: She has had a edema of lower extremities and occupational therapy has used a wrap for lower extremities the past 24 hours. They report 1 cm decrease in circumference. She has had no skin breakdown noted prior to the wrapping. Berger ited amount of Lasix has been used, cautiously because of the rising creatinine. (10) Metastatic renal cell carcinoma Priority: Secondary Status: Chronic Comments: Patient has known metastatic renal cell carcinoma. She said she has had further staging follow-up at [facility] 2 weeks ago but does not know those results yet. Qualifiers: Laterality: left Qualified Code(s): C64.2 - Malignant neoplasm of left kidney, except renal pelvis (11) DVT prophylaxis Priority: Secondary Status: Inactive (12) Anemia Priority: Secondary Status: Acute Comments: During this hospital stay her hemoglobin dropped to [address] Valentin ordered transfusion of 1 unit as she was having hypotension. Her hemoglobin has been stable since then in the 7.4-7.6 range. No history of active bleeding. Qualifiers: Anemia type: unspecified type Qualified Code(s): D64.9 - Anemia, unspecified Hospital course: Ms. Jeffries is a 78 year old female with known history of status post nephrectomy for metastatic renal cell carcinoma, chronic atrial fibrillation and anticoagulated, recent pneumonia and acute kidney injury was transferred from [facility] to [facility] rehab center for therapies due to deconditioning prior to planned discharge to home. She has improved her ADLs and from a therapy point of view is doing well functionally. However, her creatinine had been improving from her acute kidney injury at [facility] when the creatinine was in the 3.0 range and was 2.89 at [facility]. It is now creeped up to 3.29 today despite decreased diuretic use. I recommended she be transferred to [place] to be under the care of Dr. Thompson her residential framing carpenter for dialysis. See the diagnoses above. - Time Spent with Patient Total time spent providing and/or coordinating discharge services: - Discharge Medications Prescriptions: New Warfarin [Coumadin] 4 mg PO DAILY@1800 tablet Diltiazem CD (24hr) [Cardizem CD] 120 mg PO DAILY cap.er.24h Continue Atorvastatin [Lipitor] 40 mg PO HS tablet Furosemide [Lasix] 40 mg PO DAILY Potassium Chloride [Klor-Con Sprinkle] 40 meq PO BID Metoprolol [Lopressor] 12.5 mg PO BID Vit C/Vit E/Lutein/Min/Woodland-3 [Ocuvite Softgel] 1 each PO DAILY Aspirin Enteric Coated [Aspirin EC] 81 mg PO DAILY Cholecalciferol (Vitamin D3) [Vitamin D3] 2,000 unit PO BID Glucosamine Sulfate Dipot Chlr [Glucosamine] 1,000 mg PO BID Calcium Citrate/Vitamin D3 [Calcium Citrate-Vit D3 Tablet] 1 each PO DAILY Oxybutynin Chloride [Ditropan Xl] 10 mg PO DAILY Mv W-Ca/Iron/FA/Lutein/Hrb#179 [Jorge Multivit For Women Caplet] 1 each PO DAILY Pazopanib HCl [Votrient] 600 mg PO DAILY Levothyroxine [Synthroid] 112 mcg PO DAILY@0630 OxyCODONE Immed Rel [Roxicodone 5 MG] 5 mg PO Q6H PRN PRN Reason: Pain Morphine Immed Rel [Morphine Sulfate] 15 mg PO Q12HR Ondansetron ODT [Zofran ODT] 4 mg SL Q8HR PRN PRN Reason: Nausea Omeprazole [PriLOSEC] 20 mg PO DAILY Docusate [Colace] 100 mg PO DAILY Polyethylene Glycol 3350 [MiraLAX] 17 gm PO DAILY Vitamin A 10,000 unit PO DAILY Discontinued Rivaroxaban [Xarelto] 15 mg PO DAILY #0 Diltiazem CD (24hr) [Cardizem CD] 180 mg PO DAILY Home Medications: Atorvastatin [Lipitor] 40 mg PO HS tablet 06/12/15 [Rx] Aspirin Enteric Coated [Aspirin EC] 81 mg PO DAILY 07/18/15 [History] Furosemide [Lasix] 40 mg PO DAILY 09/05/15 [History] Potassium Chloride [Klor-Con Sprinkle] 40 meq PO BID 09/05/15 [History] Calcium Citrate/Vitamin D3 [Calcium Citrate-Vit D3 Tablet] 1 each PO DAILY 03/10/16 [History] Cholecalciferol (Vitamin D3) [Vitamin D3] 2,000 unit PO BID 03/10/16 [History] Glucosamine Sulfate Dipot Chlr [Glucosamine] 1,000 mg PO BID 03/10/16 [History] Metoprolol [Lopressor] 12.5 mg PO BID 02/28/17 [History] Vit C/Vit E/Lutein/Min/Woodland-3 [Ocuvite Softgel] 1 each PO DAILY 02/28/17 [History] Oxybutynin Chloride [Ditropan Xl] 10 mg PO DAILY 04/21/17 [History] Mv W-Ca/Iron/FA/Lutein/Hrb#179 [Jorge Multivit For Women Caplet] 1 each PO DAILY 07/04/18 [History] Pazopanib HCl [Votrient] 600 mg PO DAILY 09/09/18 [History] Levothyroxine [Synthroid] 112 mcg PO DAILY@0630 12/29/18 [History] Morphine Immed Rel [Morphine Sulfate] 15 mg PO Q12HR 12/29/18 [History] OxyCODONE Immed Rel [Roxicodone 5 MG] 5 mg PO Q6H PRN 12/29/18 [History] Docusate [Colace] 100 mg PO DAILY 01/05/19 [History] Omeprazole [PriLOSEC] 20 mg PO DAILY 01/05/19 [History] Ondansetron ODT [Zofran ODT] 4 mg SL Q8HR PRN 01/05/19 [History] Polyethylene Glycol 3350 [MiraLAX] 17 gm PO DAILY 01/05/19 [History] Vitamin A 10,000 unit PO DAILY 01/05/19 [History] Diltiazem CD (24hr) [Cardizem CD] 120 mg PO DAILY cap.er.24h 01/12/19 [Rx] Warfarin [Coumadin] 4 mg PO DAILY@1800 tablet 01/12/19 [Rx] Allergies/Adverse Reactions: Allergy/AdvReac Type Severity Reaction Status Date / Time No Known Allergies Allergy Verified 09/09/18 17:52 Date of admission: 01/05/19 14:58 Primary care physician: Denny Bergeron MD Consults: 01/05/19 16:47 Consult to Occupational Therapy [CONS] Routine Comment: Evaluate, develop and implement POC Reason for Consult: deconditioning s/p lidia, pna, cancer Does patient have active BEDREST order?: Yes Is patient medically & hemodynamically stable?: No Patient assessed for mobility or mobilized this visit?: Yes Consult to Physical Medicine/Rehab [CONS] Routine Reason for Consult: rehab for deconditioning s/p lidia, pna, and cancer Time Notified: 20:08 Call Completed: Yes Consult to Physical Therapy [CONS] Routine Comment: Evaluate, develop and implement POC Reason for Consult: deconditioning s/t lidia, pna, cancer Does patient have active BEDREST order?: No Is patient medically & hemodynamically stable?: Yes Patient assessed for mobility or mobilized this visit?: No Consult to Recreational Therapy [CONS] Routine Comment: Evaluate, develop and implement POC Consult to Teletypesetter Monitor [CONS] Routine Reason for SW Consult: d/c planning 01/06/19 11:20 Consult to Psychology [CONS] Routine Consulting Provider: Maday Chao Reason for Consult: Psych eval Time Notified: 10:10 Call Completed: Yes 01/11/19 07:13 Consult to Occupational Therapy [CONS] Routine Comment: Edema Bilat. LE / Wraps Reason for Consult: Does patient have active BEDREST order?: No Is patient medically & hemodynamically stable?: Yes Patient assessed for mobility or mobilized this visit?: Yes Discharging clinician: Denny Bergeron Anticipated date of discharge: 01/12/19 - Constitutional Vitals: Temp Pulse Resp BP Pulse Ox 98.8 F 100 16 100/57 96 01/12/19 07:10 01/12/19 12:05 01/12/19 07:10 01/12/19 12:05 01/12/19 12:05 - Patient Status Disposition: Transfer Short-Term Hosp Condition: Fair Functional capacity at discharge: uses cane/walker Overall status at discharge: patient is not back to baseline - Discharge Instructions Follow Up With: Denny Bergeron MD [Primary Care Provider] - - Diet and Activity Activity: ambulate only with your walker, as per physical therapy, increase activity as tolerated Diet: low salt diet, other (Renal diet)
[2019-01-12] MEDS: Furosemide 40 MG TABLET PO SCH (13:24)
== END 2019-01-12 15:35 | disposition short-term general hospital (02) | DRG 683 ==
LOC: INPGRE 14:58
PROVIDERS: ADMIT Family Medicine; ATTEND Family Medicine

== ENCOUNTER 2020-03-02 18:18 | Inpatient (IN) ==
[2020-03-02] MEDS ORDERED: Ondansetron ODT 4 MG TAB.RAPDIS SL PRN (20:03)
[2020-03-02] MEDS ORDERED: polyethylene glycoL 3350 17 GM POWD.PACK PO PRN (20:03)
[2020-03-02] MEDS: Sennosides 8.6 MG TABLET PO SCH (21:33)
[2020-03-02] MEDS: predniSONE 5 MG TABLET PO SCH (21:34)
[2020-03-02] MEDS: Apixaban 5 MG TABLET PO SCH (21:34)
[2020-03-03] MEDS: DilTIAZem CD (24hr) 180 MG CAP.ER.24H PO SCH (04:15)
[2020-03-03 04:34] LABS: Basophils % 0.5 %; Eosinophils % 0.5 %; Hemoglobin 10.1 g/dL (11.5-15.4); Immature Granulocytes % 3.8 % (0-4); Lymphocytes # 0.7 K/mcL (0.6-4.6); Lymphocytes % 8.1 %; Mean Corpuscular HGB Conc 32.6 g/dL (31.6-35.5); Mean Corpuscular Hemoglobin 36.7 pg (28.0-33.3); Mean Corpuscular Volume 112.7 fL (83.0-100.0); Mean Platelet Volume 9.1 fL (9.4-12.4); Monocytes # 0.8 K/mcL (0.0-1.3); Monocytes % 9.7 %; Neutrophils # 6.7 K/mcL (1.6-8.9); Nucleated Red Blood Cells 0.6 /100 WBC (0); Platelet Count 125 K/mcL (140-400); Red Blood Count 2.75 M/mcL (3.82-4.97); Red Cell Distribution Width 14.3 % (11.5-14.5); Segmented Neutrophils % 77.4 %; White Blood Count 8.6 K/mcL (4.3-11.1)
[2020-03-03 04:40] LABS: INR 1.4
[2020-03-03 04:43] LABS: Activated Partial Thrombo Time 30.7 Seconds (26.0-36.0)
[2020-03-03 04:48] LABS: Macrocytosis Present (Not Present); Platelet Estimate Normal (Normal)
[2020-03-03 04:51] LABS: Albumin 2.9 g/dL (3.5-5.7); Albumin/Globulin Ratio 1.5 (1.1-2.2); Bilirubin,Direct 0.1 mg/dL (0.0-0.2); Bilirubin,Indirect 0.3 mg/dL (0.0-1.0); Bilirubin,Total 0.4 mg/dL (0.3-1.0); Potassium 4.5 mEq/L (3.5-5.1); Total Protein 4.9 g/dL (6.4-8.9)
[2020-03-03] MEDS ORDERED: NON-FORMULARY MEDICATION 1 EACH EACH (Vit C/Vit E/Lutein/Min/Omega-3 [Ocuvite Softgel] 1 E PO SCH (09:00)
[2020-03-03] MEDS: Morphine Sulfate ER (12 HR) 15 MG TABLET.ER PO PRN ×2 (09:15→22:23)
[2020-03-03] MEDS: Multivit/Ca/Min/Fe/FA 1 TAB TABLET PO SCH (09:16)
[2020-03-03] MEDS: Vitamin B Complex/Vit C/Vit E 1 EACH TABLET PO SCH (09:16)
[2020-03-03] MEDS: Sennosides 8.6 MG TABLET PO SCH ×2 (09:16→22:22)
[2020-03-03] MEDS: Cholecalciferol (D-3) 1,000 UNIT (25MCG) TABLET PO SCH (09:16)
[2020-03-03] MEDS: Apixaban 5 MG TABLET PO SCH ×2 (09:17→22:23)
[2020-03-03] MEDS: predniSONE 5 MG TABLET PO SCH ×2 (09:17→22:23)
[2020-03-03] MEDS: LUTEIN PO SCH (09:18)
[2020-03-03] MEDS: OMEGA E PO SCH (09:18)
[2020-03-03] MEDS: VIT E PO SCH (09:18)
[2020-03-03] MEDS: VIT C PO SCH (09:18)
[2020-03-03] MEDS: (Vitamin A 10,000 UNIT) PO SCH (09:18)
[2020-03-04] MEDS: DilTIAZem CD (24hr) 180 MG CAP.ER.24H PO SCH (05:37)
[2020-03-04 06:28] LABS: Basophils % 0.3 %; Eosinophils % 0.4 %; Hematocrit 29.8 % (35.3-44.9); Hemoglobin 9.6 g/dL (11.5-15.4); Immature Granulocytes % 3.7 % (0-4); Lymphocytes # 0.7 K/mcL (0.6-4.6); Lymphocytes % 7.5 %; Mean Corpuscular HGB Conc 32.2 g/dL (31.6-35.5); Mean Corpuscular Hemoglobin 36.5 pg (28.0-33.3); Mean Corpuscular Volume 113.3 fL (83.0-100.0); Mean Platelet Volume 9.3 fL (9.4-12.4); Monocytes # 0.9 K/mcL (0.0-1.3); Monocytes % 9.8 %; Neutrophils # 7.4 K/mcL (1.6-8.9); Nucleated Red Blood Cells 0.5 /100 WBC (0); Platelet Count 143 K/mcL (140-400); Red Blood Count 2.63 M/mcL (3.82-4.97); Red Cell Distribution Width 14.3 % (11.5-14.5); Segmented Neutrophils % 78.3 %; White Blood Count 9.4 K/mcL (4.3-11.1)
[2020-03-04 06:41] LABS: INR 1.6
[2020-03-04 06:44] LABS: Activated Partial Thrombo Time 32.1 Seconds (26.0-36.0)
[2020-03-04 07:18] LABS: Albumin 2.8 g/dL (3.5-5.7); Albumin/Globulin Ratio 1.4 (1.1-2.2); Bilirubin,Direct 0.1 mg/dL (0.0-0.2); Bilirubin,Indirect 0.3 mg/dL (0.0-1.0); Bilirubin,Total 0.4 mg/dL (0.3-1.0); Potassium 4.4 mEq/L (3.5-5.1); Total Protein 4.8 g/dL (6.4-8.9)
[2020-03-04] MEDS: Cholecalciferol (D-3) 1,000 UNIT (25MCG) TABLET PO SCH (07:52)
[2020-03-04] MEDS: Apixaban 5 MG TABLET PO SCH ×3 (07:52→20:46)
[2020-03-04] MEDS: predniSONE 5 MG TABLET PO SCH ×2 (07:53→20:55)
[2020-03-04] MEDS: Vitamin B Complex/Vit C/Vit E 1 EACH TABLET PO SCH (07:53)
[2020-03-04] MEDS: Multivit/Ca/Min/Fe/FA 1 TAB TABLET PO SCH (07:53)
[2020-03-04] MEDS: Sennosides 8.6 MG TABLET PO SCH ×2 (07:53→20:47)
[2020-03-04] MEDS: LUTEIN PO SCH (09:54)
[2020-03-04] MEDS: VIT E PO SCH (09:54)
[2020-03-04] MEDS: VIT C PO SCH (09:54)
[2020-03-04] MEDS: OMEGA E PO SCH (09:54)
[2020-03-04] MEDS: (Vitamin A 10,000 UNIT) PO SCH (09:54)
[2020-03-04] MEDS ORDERED: 0.9 % Sodium Chloride 1,000 ML IVC SCH (16:45)
[2020-03-04] MEDS: Morphine Sulfate ER (12 HR) 15 MG TABLET.ER PO PRN (20:49)
[2020-03-05 05:44] LABS: Basophils # 0.1 K/mcL (0.0-0.2); Basophils % 0.6 %; Eosinophils % 0.5 %; Hematocrit 28.2 % (35.3-44.9); Immature Granulocytes % 4.3 % (0-4); Lymphocytes # 0.9 K/mcL (0.6-4.6); Lymphocytes % 9.9 %; Mean Corpuscular HGB Conc 31.9 g/dL (31.6-35.5); Mean Corpuscular Hemoglobin 36.4 pg (28.0-33.3); Mean Corpuscular Volume 114.2 fL (83.0-100.0); Mean Platelet Volume 8.9 fL (9.4-12.4); Monocytes # 0.9 K/mcL (0.0-1.3); Monocytes % 9.7 %; Neutrophils # 6.6 K/mcL (1.6-8.9); Nucleated Red Blood Cells 1.3 /100 WBC (0); Platelet Count 138 K/mcL (140-400); Red Blood Count 2.47 M/mcL (3.82-4.97); Red Cell Distribution Width 14.3 % (11.5-14.5); White Blood Count 8.8 K/mcL (4.3-11.1)
[2020-03-05 05:54] LABS: Macrocytosis Present (Not Present); Platelet Estimate Normal (Normal)
[2020-03-05 05:57] LABS: Albumin 2.9 g/dL (3.5-5.7); Albumin/Globulin Ratio 1.6 (1.1-2.2); Bilirubin,Direct 0.1 mg/dL (0.0-0.2); Bilirubin,Indirect 0.3 mg/dL (0.0-1.0); Bilirubin,Total 0.4 mg/dL (0.3-1.0); Calcium 7.7 mg/dL (8.6-10.3); Globulin 1.8 g/dL (2.4-3.5); Potassium 4.7 mEq/L (3.5-5.1); Total Protein 4.7 g/dL (6.4-8.9)
[2020-03-05 06:08] LABS: Magnesium 2.4 mg/dL (1.6-2.6); Phosphorous 3.5 mg/dL (2.7-4.5)
[2020-03-05 06:26] LABS: Thyroid Stimulating Hormone 10.262 mcIU/mL (0.340-5.600)
[2020-03-05] MEDS: Vitamin B Complex/Vit C/Vit E 1 EACH TABLET PO SCH (08:47)
[2020-03-05] MEDS: predniSONE 5 MG TABLET PO SCH ×2 (08:48→20:48)
[2020-03-05] MEDS: DilTIAZem CD (24hr) 180 MG CAP.ER.24H PO SCH (08:48)
[2020-03-05] MEDS: Multivit/Ca/Min/Fe/FA 1 TAB TABLET PO SCH (08:49)
[2020-03-05] MEDS: OMEGA E PO SCH (08:50)
[2020-03-05] MEDS: Cholecalciferol (D-3) 1,000 UNIT (25MCG) TABLET PO SCH (08:50)
[2020-03-05] MEDS: Morphine Sulfate ER (12 HR) 15 MG TABLET.ER PO PRN ×2 (08:50→20:48)
[2020-03-05] MEDS: VIT C PO SCH (08:50)
[2020-03-05] MEDS: Sennosides 8.6 MG TABLET PO SCH ×2 (08:50→20:49)
[2020-03-05] MEDS: (Vitamin A 10,000 UNIT) PO SCH (08:50)
[2020-03-05] MEDS: LUTEIN PO SCH (08:50)
[2020-03-05] MEDS: VIT E PO SCH (08:50)
[2020-03-05] MEDS: Apixaban 5 MG TABLET PO SCH ×2 (08:50→20:49)
[2020-03-06 05:34] LABS: Basophils % 0.5 %; Eosinophils % 0.5 %; Hematocrit 27.4 % (35.3-44.9); Hemoglobin 8.7 g/dL (11.5-15.4); Immature Granulocytes % 4.5 % (0-4); Lymphocytes # 0.8 K/mcL (0.6-4.6); Lymphocytes % 9.3 %; Mean Corpuscular HGB Conc 31.8 g/dL (31.6-35.5); Mean Corpuscular Volume 113.2 fL (83.0-100.0); Mean Platelet Volume 8.9 fL (9.4-12.4); Monocytes # 0.8 K/mcL (0.0-1.3); Monocytes % 10.3 %; Nucleated Red Blood Cells 1.1 /100 WBC (0); Platelet Count 146 K/mcL (140-400); Red Blood Count 2.42 M/mcL (3.82-4.97); Red Cell Distribution Width 14.3 % (11.5-14.5); Segmented Neutrophils % 74.9 %; White Blood Count 8.1 K/mcL (4.3-11.1)
[2020-03-06 05:50] LABS: Albumin 2.8 g/dL (3.5-5.7); Albumin/Globulin Ratio 1.5 (1.1-2.2); Bilirubin,Direct 0.1 mg/dL (0.0-0.2); Bilirubin,Indirect 0.3 mg/dL (0.0-1.0); Bilirubin,Total 0.4 mg/dL (0.3-1.0); Calcium 7.9 mg/dL (8.6-10.3); Globulin 1.9 g/dL (2.4-3.5); Potassium 5.2 mEq/L (3.5-5.1); Total Protein 4.7 g/dL (6.4-8.9)
[2020-03-06] MEDS: Multivit/Ca/Min/Fe/FA 1 TAB TABLET PO SCH (09:01)
[2020-03-06] MEDS: Sennosides 8.6 MG TABLET PO SCH ×2 (09:01→20:24)
[2020-03-06] MEDS: Cholecalciferol (D-3) 1,000 UNIT (25MCG) TABLET PO SCH (09:02)
[2020-03-06] MEDS: Vitamin B Complex/Vit C/Vit E 1 EACH TABLET PO SCH (09:02)
[2020-03-06] MEDS: predniSONE 5 MG TABLET PO SCH ×2 (09:02→20:24)
[2020-03-06] MEDS: Morphine Sulfate ER (12 HR) 15 MG TABLET.ER PO PRN ×2 (09:02→20:25)
[2020-03-06] MEDS: Apixaban 5 MG TABLET PO SCH ×2 (09:28→20:24)
[2020-03-06] MEDS: [UNRECOGNIZED DRUG - OTHER] PO SCH ×2 (09:28→20:30)
[2020-03-06] MEDS: VIT E PO SCH (09:29)
[2020-03-06] MEDS: OMEGA E PO SCH (09:29)
[2020-03-06] MEDS: LUTEIN PO SCH (09:29)
[2020-03-06] MEDS: VIT C PO SCH (09:29)
[2020-03-06] MEDS: (Vitamin A 10,000 UNIT) PO SCH (09:29)
[2020-03-07 05:11] LABS: Basophils % 0.4 %; Eosinophils % 0.4 %; Hematocrit 26.4 % (35.3-44.9); Hemoglobin 8.3 g/dL (11.5-15.4); Immature Granulocytes % 3.5 % (0-4); Lymphocytes # 0.5 K/mcL (0.6-4.6); Lymphocytes % 7.3 %; Mean Corpuscular HGB Conc 31.4 g/dL (31.6-35.5); Mean Corpuscular Hemoglobin 35.6 pg (28.0-33.3); Mean Corpuscular Volume 113.3 fL (83.0-100.0); Mean Platelet Volume 8.9 fL (9.4-12.4); Monocytes # 0.7 K/mcL (0.0-1.3); Monocytes % 9.4 %; Neutrophils # 5.9 K/mcL (1.6-8.9); Nucleated Red Blood Cells 0.5 /100 WBC (0); Platelet Count 151 K/mcL (140-400); Red Blood Count 2.33 M/mcL (3.82-4.97); Red Cell Distribution Width 14.3 % (11.5-14.5); White Blood Count 7.4 K/mcL (4.3-11.1)
[2020-03-07 05:30] LABS: Albumin 2.8 g/dL (3.5-5.7); Albumin/Globulin Ratio 1.5 (1.1-2.2); Bilirubin,Total 0.4 mg/dL (0.3-1.0); Globulin 1.9 g/dL (2.4-3.5); Potassium 4.9 mEq/L (3.5-5.1); Total Protein 4.7 g/dL (6.4-8.9)
[2020-03-07 06:07] LABS: Anisocytosis 1+ (Not Present)
[2020-03-07] MEDS: Vitamin B Complex/Vit C/Vit E 1 EACH TABLET PO SCH (09:05)
[2020-03-07] MEDS: predniSONE 5 MG TABLET PO SCH ×2 (09:07→21:42)
[2020-03-07] MEDS: Morphine Sulfate ER (12 HR) 15 MG TABLET.ER PO PRN ×2 (09:07→21:42)
[2020-03-07] MEDS: Apixaban 5 MG TABLET PO SCH ×2 (09:07→21:42)
[2020-03-07] MEDS: Multivit/Ca/Min/Fe/FA 1 TAB TABLET PO SCH (09:07)
[2020-03-07] MEDS: Sennosides 8.6 MG TABLET PO SCH ×2 (09:07→21:42)
[2020-03-07] MEDS: Cholecalciferol (D-3) 1,000 UNIT (25MCG) TABLET PO SCH (09:10)
[2020-03-07] MEDS: (Vitamin A 10,000 UNIT) PO SCH (09:11)
[2020-03-07] MEDS: VIT E PO SCH (09:12)
[2020-03-07] MEDS: LUTEIN PO SCH (09:12)
[2020-03-07] MEDS: [UNRECOGNIZED DRUG - OTHER] PO SCH ×2 (09:12→21:43)
[2020-03-07] MEDS: VIT C PO SCH (09:12)
[2020-03-07] MEDS: OMEGA E PO SCH (09:12)
[2020-03-07] MEDS: DilTIAZem CD (24hr) 300 MG CAP.ER.24H PO SCH (09:45)
[2020-03-08 05:57] LABS: Albumin 2.8 g/dL (3.5-5.7); Albumin/Globulin Ratio 1.5 (1.1-2.2); Bilirubin,Direct 0.1 mg/dL (0.0-0.2); Bilirubin,Indirect 0.3 mg/dL (0.0-1.0); Bilirubin,Total 0.4 mg/dL (0.3-1.0); Globulin 1.9 g/dL (2.4-3.5); Potassium 4.8 mEq/L (3.5-5.1); Total Protein 4.7 g/dL (6.4-8.9)
[2020-03-08] MEDS: Vitamin B Complex/Vit C/Vit E 1 EACH TABLET PO SCH (08:55)
[2020-03-08] MEDS: DilTIAZem CD (24hr) 300 MG CAP.ER.24H PO SCH (08:55)
[2020-03-08] MEDS: Sennosides 8.6 MG TABLET PO SCH ×2 (08:55→20:38)
[2020-03-08] MEDS: predniSONE 5 MG TABLET PO SCH ×2 (08:55→20:33)
[2020-03-08] MEDS: Cholecalciferol (D-3) 1,000 UNIT (25MCG) TABLET PO SCH (08:55)
[2020-03-08] MEDS: Apixaban 5 MG TABLET PO SCH ×2 (08:55→20:34)
[2020-03-08] MEDS: Multivit/Ca/Min/Fe/FA 1 TAB TABLET PO SCH (08:55)
[2020-03-08] MEDS: OMEGA E PO SCH (08:56)
[2020-03-08] MEDS: (Vitamin A 10,000 UNIT) PO SCH (08:56)
[2020-03-08] MEDS: VIT C PO SCH (08:56)
[2020-03-08] MEDS: [UNRECOGNIZED DRUG - OTHER] PO SCH ×2 (08:56→20:34)
[2020-03-08] MEDS: VIT E PO SCH (08:56)
[2020-03-08] MEDS: LUTEIN PO SCH (08:56)
[2020-03-08] MEDS: Morphine Sulfate ER (12 HR) 15 MG TABLET.ER PO PRN (16:35)
[2020-03-09] MEDS: Sennosides 8.6 MG TABLET PO SCH ×2 (08:22→19:39)
[2020-03-09] MEDS: predniSONE 5 MG TABLET PO SCH ×2 (08:37→19:40)
[2020-03-09] MEDS: Multivit/Ca/Min/Fe/FA 1 TAB TABLET PO SCH (08:37)
[2020-03-09] MEDS: Apixaban 5 MG TABLET PO SCH ×2 (08:37→19:40)
[2020-03-09] MEDS: Cholecalciferol (D-3) 1,000 UNIT (25MCG) TABLET PO SCH (08:37)
[2020-03-09] MEDS: Vitamin B Complex/Vit C/Vit E 1 EACH TABLET PO SCH (08:38)
[2020-03-09] MEDS: [UNRECOGNIZED DRUG - OTHER] PO SCH ×2 (08:38→19:40)
[2020-03-09] MEDS: DilTIAZem CD (24hr) 300 MG CAP.ER.24H PO SCH (08:38)
[2020-03-09] MEDS: Morphine Sulfate ER (12 HR) 15 MG TABLET.ER PO PRN ×2 (08:38→21:41)
[2020-03-09] MEDS: (Vitamin A 10,000 UNIT) PO SCH (08:38)
[2020-03-09] MEDS: LUTEIN PO SCH (08:39)
[2020-03-09] MEDS: OMEGA E PO SCH (08:39)
[2020-03-09] MEDS: VIT E PO SCH (08:39)
[2020-03-09] MEDS: VIT C PO SCH (08:39)
[2020-03-09] MEDS ORDERED: Darbepoetin 100 MCG/0.5 ML SYRINGE SQ SCH (18:15)
[2020-03-10] MEDS: Multivit/Ca/Min/Fe/FA 1 TAB TABLET PO SCH (08:50)
[2020-03-10] MEDS: Cholecalciferol (D-3) 1,000 UNIT (25MCG) TABLET PO SCH (08:50)
[2020-03-10] MEDS: Vitamin B Complex/Vit C/Vit E 1 EACH TABLET PO SCH (08:50)
[2020-03-10] MEDS: predniSONE 5 MG TABLET PO SCH ×2 (08:50→22:02)
[2020-03-10] MEDS: DilTIAZem CD (24hr) 300 MG CAP.ER.24H PO SCH (08:50)
[2020-03-10] MEDS: Apixaban 5 MG TABLET PO SCH ×2 (08:51→22:02)
[2020-03-10] MEDS: Furosemide 40 MG TABLET PO SCH (08:51)
[2020-03-10] MEDS: LUTEIN PO SCH (08:53)
[2020-03-10] MEDS: (Vitamin A 10,000 UNIT) PO SCH (08:53)
[2020-03-10] MEDS: OMEGA E PO SCH (08:53)
[2020-03-10] MEDS: VIT C PO SCH (08:53)
[2020-03-10] MEDS: Sennosides 8.6 MG TABLET PO SCH ×2 (08:53→22:03)
[2020-03-10] MEDS: [UNRECOGNIZED DRUG - OTHER] PO SCH ×2 (08:53→22:03)
[2020-03-10] MEDS: VIT E PO SCH (08:53)
[2020-03-10] MEDS ORDERED: Furosemide 40 MG TABLET PO ONE (09:00)
[2020-03-10] MEDS: Morphine Sulfate ER (12 HR) 15 MG TABLET.ER PO PRN ×2 (10:19→22:04)
[2020-03-11 06:24] LABS: Basophils % 0.5 %; Eosinophils % 0.7 %; Hematocrit 24.4 % (35.3-44.9); Hemoglobin 7.8 g/dL (11.5-15.4); Immature Granulocytes % 2.2 % (0-4); Lymphocytes # 0.3 K/mcL (0.6-4.6); Lymphocytes % 5.7 %; Mean Corpuscular Hemoglobin 35.3 pg (28.0-33.3); Mean Corpuscular Volume 110.4 fL (83.0-100.0); Monocytes # 0.6 K/mcL (0.0-1.3); Monocytes % 9.8 %; Neutrophils # 4.8 K/mcL (1.6-8.9); Nucleated Red Blood Cells 0.7 /100 WBC (0); Platelet Count 165 K/mcL (140-400); Red Blood Count 2.21 M/mcL (3.82-4.97); Segmented Neutrophils % 81.1 %; White Blood Count 5.9 K/mcL (4.3-11.1)
[2020-03-11 06:37] LABS: Albumin 2.8 g/dL (3.5-5.7); Albumin/Globulin Ratio 1.4 (1.1-2.2); Bilirubin,Direct 0.1 mg/dL (0.0-0.2); Bilirubin,Indirect 0.2 mg/dL (0.0-1.0); Bilirubin,Total 0.3 mg/dL (0.3-1.0); Total Protein 4.8 g/dL (6.4-8.9)
[2020-03-11 06:38] LABS: Potassium 4.4 mEq/L (3.5-5.1)
[2020-03-11] MEDS: Furosemide 40 MG TABLET PO SCH (09:17)
[2020-03-11] MEDS: Cholecalciferol (D-3) 1,000 UNIT (25MCG) TABLET PO SCH (09:17)
[2020-03-11] MEDS: Apixaban 5 MG TABLET PO SCH ×2 (09:17→21:54)
[2020-03-11] MEDS: Vitamin B Complex/Vit C/Vit E 1 EACH TABLET PO SCH (09:17)
[2020-03-11] MEDS: DilTIAZem CD (24hr) 300 MG CAP.ER.24H PO SCH (09:17)
[2020-03-11] MEDS: predniSONE 5 MG TABLET PO SCH ×2 (09:17→21:54)
[2020-03-11] MEDS: Multivit/Ca/Min/Fe/FA 1 TAB TABLET PO SCH (09:17)
[2020-03-11] MEDS: VIT E PO SCH (09:35)
[2020-03-11] MEDS: [UNRECOGNIZED DRUG - OTHER] PO SCH ×2 (09:35→21:56)
[2020-03-11] MEDS: LUTEIN PO SCH (09:35)
[2020-03-11] MEDS: (Vitamin A 10,000 UNIT) PO SCH (09:35)
[2020-03-11] MEDS: OMEGA E PO SCH (09:35)
[2020-03-11] MEDS: VIT C PO SCH (09:35)
[2020-03-11] MEDS: Sennosides 8.6 MG TABLET PO SCH ×2 (09:36→21:57)
[2020-03-11] MEDS: Morphine Sulfate ER (12 HR) 15 MG TABLET.ER PO PRN (21:59)
[2020-03-12 05:24] LABS: Chol/HDL Ratio 2.3 (0-4.9)
[2020-03-12] MEDS: Apixaban 5 MG TABLET PO SCH ×2 (09:34→21:57)
[2020-03-12] MEDS: Cholecalciferol (D-3) 1,000 UNIT (25MCG) TABLET PO SCH (09:34)
[2020-03-12] MEDS: Vitamin B Complex/Vit C/Vit E 1 EACH TABLET PO SCH (09:34)
[2020-03-12] MEDS: DilTIAZem CD (24hr) 300 MG CAP.ER.24H PO SCH (09:35)
[2020-03-12] MEDS: Furosemide 40 MG TABLET PO SCH (09:35)
[2020-03-12] MEDS: predniSONE 5 MG TABLET PO SCH ×2 (09:35→21:58)
[2020-03-12] MEDS: Multivit/Ca/Min/Fe/FA 1 TAB TABLET PO SCH (09:35)
[2020-03-12] MEDS: Sennosides 8.6 MG TABLET PO SCH (09:35)
[2020-03-12] MEDS: VIT E PO SCH (09:38)
[2020-03-12] MEDS: OMEGA E PO SCH (09:38)
[2020-03-12] MEDS: (Vitamin A 10,000 UNIT) PO SCH (09:38)
[2020-03-12] MEDS: VIT C PO SCH (09:38)
[2020-03-12] MEDS: LUTEIN PO SCH (09:38)
[2020-03-12] MEDS: [UNRECOGNIZED DRUG - OTHER] PO SCH ×2 (09:39→21:59)
[2020-03-12] MEDS: Morphine Sulfate ER (12 HR) 15 MG TABLET.ER PO PRN ×2 (09:47→22:00)
[2020-03-13] MEDS: Sennosides 8.6 MG TABLET PO SCH ×3 (00:50→20:51)
[2020-03-13 05:25] LABS: Calcium 8.1 mg/dL (8.6-10.3); Potassium 4.5 mEq/L (3.5-5.1)
[2020-03-13] MEDS: Furosemide 40 MG TABLET PO SCH (09:27)
[2020-03-13] MEDS: DilTIAZem CD (24hr) 300 MG CAP.ER.24H PO SCH (09:27)
[2020-03-13] MEDS: Multivit/Ca/Min/Fe/FA 1 TAB TABLET PO SCH (09:28)
[2020-03-13] MEDS: Vitamin B Complex/Vit C/Vit E 1 EACH TABLET PO SCH (09:28)
[2020-03-13] MEDS: Apixaban 5 MG TABLET PO SCH ×2 (09:28→20:49)
[2020-03-13] MEDS: Cholecalciferol (D-3) 1,000 UNIT (25MCG) TABLET PO SCH (09:28)
[2020-03-13] MEDS: predniSONE 5 MG TABLET PO SCH ×2 (09:28→20:50)
[2020-03-13] MEDS: (Vitamin A 10,000 UNIT) PO SCH (09:30)
[2020-03-13] MEDS: LUTEIN PO SCH (09:31)
[2020-03-13] MEDS: VIT E PO SCH (09:31)
[2020-03-13] MEDS: OMEGA E PO SCH (09:31)
[2020-03-13] MEDS: [UNRECOGNIZED DRUG - OTHER] PO SCH ×2 (09:31→20:52)
[2020-03-13] MEDS: VIT C PO SCH (09:31)
[2020-03-13] MEDS: Morphine Sulfate ER (12 HR) 15 MG TABLET.ER PO PRN (09:37)
[2020-03-14] MEDS: Cholecalciferol (D-3) 1,000 UNIT (25MCG) TABLET PO SCH (08:10)
[2020-03-14] MEDS: Multivit/Ca/Min/Fe/FA 1 TAB TABLET PO SCH (08:10)
[2020-03-14] MEDS: DilTIAZem CD (24hr) 300 MG CAP.ER.24H PO SCH (08:10)
[2020-03-14] MEDS: Apixaban 5 MG TABLET PO SCH ×2 (08:10→20:36)
[2020-03-14] MEDS: Vitamin B Complex/Vit C/Vit E 1 EACH TABLET PO SCH (08:10)
[2020-03-14] MEDS: Morphine Sulfate ER (12 HR) 15 MG TABLET.ER PO PRN (08:10)
[2020-03-14] MEDS: Sennosides 8.6 MG TABLET PO SCH ×2 (08:10→23:02)
[2020-03-14] MEDS: predniSONE 5 MG TABLET PO SCH ×2 (08:10→20:36)
[2020-03-14] MEDS: Furosemide 40 MG TABLET PO SCH (08:11)
[2020-03-14] MEDS: LUTEIN PO SCH (08:14)
[2020-03-14] MEDS: VIT E PO SCH (08:14)
[2020-03-14] MEDS: OMEGA E PO SCH (08:14)
[2020-03-14] MEDS: (Vitamin A 10,000 UNIT) PO SCH (08:14)
[2020-03-14] MEDS: VIT C PO SCH (08:14)
[2020-03-14] MEDS: [UNRECOGNIZED DRUG - OTHER] PO SCH ×2 (08:15→20:38)
[2020-03-15] MEDS: DilTIAZem CD (24hr) 300 MG CAP.ER.24H PO SCH (05:32)
[2020-03-15] MEDS: Apixaban 5 MG TABLET PO SCH ×2 (05:34→21:39)
[2020-03-15] MEDS: [UNRECOGNIZED DRUG - OTHER] PO SCH ×2 (05:35→21:39)
[2020-03-15] MEDS: predniSONE 5 MG TABLET PO SCH ×2 (05:36→21:39)
[2020-03-15] MEDS: Vitamin B Complex/Vit C/Vit E 1 EACH TABLET PO SCH (05:36)
[2020-03-15] MEDS: Cholecalciferol (D-3) 1,000 UNIT (25MCG) TABLET PO SCH (05:37)
[2020-03-15] MEDS: Multivit/Ca/Min/Fe/FA 1 TAB TABLET PO SCH (05:37)
[2020-03-15] MEDS: Sennosides 8.6 MG TABLET PO SCH ×2 (12:29→21:40)
[2020-03-15] MEDS: Furosemide 40 MG TABLET PO SCH (12:29)
[2020-03-15] MEDS: (Vitamin A 10,000 UNIT) PO SCH (12:30)
[2020-03-15] MEDS: LUTEIN PO SCH (12:31)
[2020-03-15] MEDS: OMEGA E PO SCH (12:31)
[2020-03-15] MEDS: VIT E PO SCH (12:31)
[2020-03-15] MEDS: VIT C PO SCH (12:31)
[2020-03-15] MEDS: Morphine Sulfate ER (12 HR) 15 MG TABLET.ER PO PRN (16:40)
[2020-03-16 07:18] LABS: Albumin 2.9 g/dL (3.5-5.7); Albumin/Globulin Ratio 1.5 (1.1-2.2); Bilirubin,Direct 0.1 mg/dL (0.0-0.2); Bilirubin,Indirect 0.3 mg/dL (0.0-1.0); Bilirubin,Total 0.4 mg/dL (0.3-1.0); Calcium 8.2 mg/dL (8.6-10.3); Globulin 1.9 g/dL (2.4-3.5); Potassium 3.9 mEq/L (3.5-5.1); Total Protein 4.8 g/dL (6.4-8.9)
[2020-03-16 07:24] VITALS: BP 99/74
[2020-03-16] MEDS: Apixaban 5 MG TABLET PO SCH (08:31)
[2020-03-16] MEDS: Vitamin B Complex/Vit C/Vit E 1 EACH TABLET PO SCH (08:31)
[2020-03-16] MEDS: Multivit/Ca/Min/Fe/FA 1 TAB TABLET PO SCH (08:31)
[2020-03-16] MEDS: Sennosides 8.6 MG TABLET PO SCH (08:31)
[2020-03-16] MEDS: predniSONE 5 MG TABLET PO SCH (08:31)
[2020-03-16] MEDS: Cholecalciferol (D-3) 1,000 UNIT (25MCG) TABLET PO SCH (08:31)
[2020-03-16] MEDS: DilTIAZem CD (24hr) 300 MG CAP.ER.24H PO SCH (08:31)
[2020-03-16] MEDS: Furosemide 40 MG TABLET PO SCH (08:32)
[2020-03-16] MEDS: VIT C PO SCH (08:33)
[2020-03-16] MEDS: VIT E PO SCH (08:33)
[2020-03-16] MEDS: OMEGA E PO SCH (08:33)
[2020-03-16] MEDS: LUTEIN PO SCH (08:33)
[2020-03-16] MEDS: (Vitamin A 10,000 UNIT) PO SCH (08:33)
[2020-03-16] MEDS: Morphine Sulfate ER (12 HR) 15 MG TABLET.ER PO PRN (08:42)
[2020-03-16] MEDS: [UNRECOGNIZED DRUG - OTHER] PO SCH (10:58)
== END 2020-03-16 12:21 | disposition home health service (06) | DRG 945 ==
LOC: INPGRE 18:18
PROVIDERS: ADMIT Family Medicine; ATTEND Family Medicine